=== PATIENT | female | born 1985 | race Caucasian/White ===

== ENCOUNTER → 2023-11-18 | Outpatient (CLI) | payer BC | END | disposition home or self-care (01) | LOC: LABWHC1 08:43 | PROVIDERS: ATTEND Family Medicine | DX: R53.83 Other fatigue (principal) | CPT/HCPCS: 36415; 82533 ==

== ENCOUNTER 2023-12-05 17:33 | Emergency (ER) | payer BC ==
--- NOTE | 2023-12-05 17:43 | ED ---
Weakness HPI - General Source: patient, RN notes reviewed <Samaria De La Torre - Last Filed: 12/05/23 17:42> <Cirilo Hollingsworth - Last Filed: 12/06/23 04:30> - General Stated complaint: Weakness Time Seen by Provider: 12/05/23 17:42 - History of Present Illness Initial comments: Patient is a 38-year-old female presented to ER with a chief complaint of weakness. Patient states this has been going on for the past couple months and has been getting worked up outpatient. She states for the past 24 hours her symptoms have increased. Patient has been told in the past she has severe anemia and is currently waiting infusions. She reports earlier this week she was having some chest pain. Denies any fevers, chills, cough, congestion. (Samaria De La Torre) Patient is a 38-year-old female who presents to the emergency department with what appears to be a near syncopal episode. Occurred earlier today. Has been dealing with chronic fatigue as well as suspicion for microcytic anemia. She is working on getting approval for iron infusions. Had a near syncopal episode at home earlier. [place] lightheaded. Presents for further evaluation. States she feels improved other than the fatigue. Denies any other acute complaints at this time. Originally evaluated as a quick note. I evaluated her when she was placed in a hallway bed. (Cirilo Hollingsworth) - Related Data Previous Rx's Medication Instructions Recorded Cephalexin [Keflex] 500 mg PO Q12HR 7 Days #14 cap 12/05/23 Allergies Allergy/AdvReac Type Severity Reaction Status Date / Time No Known Allergies Allergy Verified 12/05/23 17:51 Review of Systems ROS Other: All systems not noted in ROS Statement are negative. <Samaria De La Torre - Last Filed: 12/05/23 17:42> ROS Other: All systems not noted in ROS Statement are negative. <Cirilo Hollingsworth - Last Filed: 12/06/23 04:30> ROS Statement: Those systems with pertinent positive or pertinent negative responses have been documented in the HPI. Review of Systems: CONST: Denies fever EYES: Denies blurry vision ENT: Denies nasal congestion C/V: Denies Chest pain RESP: Denies shortness of breath GI: Denies abdominal pain : Denies dysuria SKIN: Denies rash. MSK: Denies joint pain. NEURO: Denies headache (Cirilo Hollingsworth) General Exam <Samaria De La Torre - Last Filed: 12/05/23 17:42> <Cirilo Hollingsworth - Last Filed: 12/06/23 04:30> - General Exam Comments Initial Comments: Visual Physical Exam Vital signs reviewed General: Well-appearing, nontoxic, no acute distress. Head: Normocephalic, atraumatic Eyes: PERRLA, EOMI ENT: Airway patent Chest: Nonlabored breathing Skin: No visual rash, normal skin tone Neuro: Alert and oriented 3 Musculoskeletal: No gross abnormalities (Samaria De La Torre) General: Appears in no acute distress. HEAD: Normal with no signs of head trauma. EYES: PERRLA, EOMI, conjunctiva normal, no discharge. ENT: Hearing grossly intact, normal oropharynx. RESPIRATORY: Clear breath sounds bilaterally. No wheezes, rales, or rhonchi. C/V: Regular rate and rhythm. S1 and S2 auscultated, no edema, peripheral pulses 2+ and intact throughout ABD: Abd is soft, nontender, nondistended EXT: Normal range of motion, no obvious deformity SKIN: No rashes or lesions observed on exposed skin. NEURO: Alert and oriented x 4.No focal sensory or strength deficits. (Cirilo Hollingsworth) Course Vital Signs 12/05/23 12/05/23 12/05/23 17:47 21:58 23:17 Temperature 98.4 F 97.8 F 97.7 F Pulse Rate 70 56 L 64 Respiratory 16 16 16 Rate Blood Pressure 135/82 121/75 106/63 O2 Sat by Pulse 98 100 100 Oximetry Medical Decision Making <Samaria De La Torre - Last Filed: 12/05/23 17:42> - Lab Data Result diagrams: 12/05/23 18:10 12/05/23 18:10 - EKG Data -: EKG Interpreted by Me <Cirilo Hollingsworth - Last Filed: 12/06/23 04:30> - Medical Decision Making I performed the quick note portion of this chart. Electronically signed by Samaria De La Torre PA-C (Samaria De La Torre) Was pt. sent in by a medical professional or institution (ALONDRA Aguayo, FULL DECATOR OPERATOR, urgent care, hospital, or [facility]...) When possible be specific @ -No Did you speak to anyone other than the patient for history (EMS, parent, family, police, friend...)? What history was obtained from this source @ -No Did you review nursing and triage notes (agree or disagree)? Why? @ -I reviewed and agree with nursing and triage notes Were old charts reviewed (outside hosp., previous admission, EMS record, old EKG, old radiological studies, urgent care reports/EKG's, [facility] records)? Report findings @ -No old charts were reviewed Differential Diagnosis (chest pain, altered mental status, abdominal pain women, abdominal pain men, vaginal bleeding, weakness, fever, dyspnea, syncope, headache, dizziness, GI bleed, back pain, seizure, CVA, palpatations, mental health, musculoskeletal)? @ -Dehydration, electrolyte abnormality, anemia, infection, cardiac etiology. This list is not all inclusive. EKG interpreted by me (3pts min.). @ -As above X-rays interpreted by me (1pt min.). @ -Chest x-ray reveals no obvious acute cardiopulmonary process. CT interpreted by me (1pt min.). @ -None done U/S interpreted by me (1pt. min.). @ -None done What testing was considered but not performed or refused? (CT, X-rays, U/S, labs)? Why? @ -None What meds were considered but not given or refused? Why? @ -None Did you discuss the management of the patient with other professionals (professionals i.e. , PA, FULL DECATOR OPERATOR, lab, RT, psych nurse, neonatal social worker, workers compensation coordinator, teacher, geographic area intelligence officer, director of casework)? Give summary @ -No Was smoking cessation discussed for >3mins.? @ -No Was critical care preformed (if so, how long)? @ -No Were there social determinants of health that impacted care today? How? (Homelessness, low income, unemployed, alcoholism, drug addiction, transportation, low edu. Level, literacy, decrease access to med. care, long term, rehab)? @ -No Was there de-escalation of care discussed even if they declined (Discuss DNR or withdrawal of care, Hospice)? DNR status @ -No What co-morbidities impacted this encounter? (DM, HTN, Smoking, COPD, CAD, Cancer, CVA, ARF, Chemo, Hep., AIDS, mental health diagnosis, sleep apnea, morbid obesity)? @ -None Was patient admitted / discharged? Hospital course, mention meds given and route, prescriptions, significant lab abnormalities, going to OR and other pertinent info. @ -Patient presents with acute on chronic fatigue as well as a near syncopal episode at home. Has been getting worked up outpatient for the fatigue and they do suspect is likely secondary to microcytic anemia. Vital signs currently within acceptable limits. I evaluated her when she was placed in a hallway bed. She is feeling improved at this time. We are awaiting urinalysis. Patient's laboratory studies are remarkable for a mild microcytic anemia with a hemoglobin of 11.6. Workup otherwise remarkable for an undetectable troponin. Urinalysis pending. Viral swabs negative. Chest x-ray unremarkable. EKG shows no signs of acute ischemia. I discussed results with patient. We will administer IV fluids and obtain a urinalysis. She was in agreement this plan.Urinalysis is borderline for acute UTI. Culture sent. I discussed results with the patient. She is feeling improved. She will be started on antibiotics, Keflex considering her symptoms. She was in agreement this plan. Strict return precautions discussed. I will provide the patient with a prescription for Keflex. I instructed the patient to follow up with their PCP in the next 1-3 days.. I explained that the patient should return to the emergency department if they experience any worsening symptoms. Strict return precautions were discussed with the patient. The patient expressed understanding of these instructions. I answered all questions that the patient had. The patient was discharged home in good condition with their prescriptions and follow up information. Undiagnosed new problem with uncertain prognosis? @ -No Drug Therapy requiring intensive monitoring for toxicity (Heparin, Nitro, Insulin, Cardizem)? @ -No Were any procedures done? @ -No Diagnosis/symptom? @ -Near syncope, UTI, fatigue Acute, or Chronic, or Acute on Chronic? @ -Acute Uncomplicated (without systemic symptoms) or Complicated (systemic symptoms)? @ -Complicated Side effects of treatment? @ -None Exacerbation, Progression, or Severe Exacerbation] @ -No Poses a threat to life or bodily function? @ -Unlikely (Cirilo Hollingsworth) - Lab Data Lab Results 12/05/23 12/05/23 12/05/23 Range/Units 18:10 18:10 18:10 WBC 7.4 (3.8-10.6) k/uL RBC 4.63 (3.80-5.40) m/uL Hgb 11.6 (11.4-16.0) gm/dL Hct 35.1 (34.0-46.0) % MCV 75.8 L (80.0-100.0) fL MCH 25.0 (25.0-35.0) pg MCHC 32.9 (31.0-37.0) g/dL RDW 15.9 H (11.5-15.5) % Plt Count 331 (150-450) k/uL MPV 6.9 Neutrophils % 66 % Lymphocytes % 24 % Monocytes % 6 % Eosinophils % 2 % Basophils % 0 % Neutrophils # 4.9 (1.3-7.7) k/uL Lymphocytes # 1.8 (1.0-4.8) k/uL Monocytes # 0.4 (0-1.0) k/uL Eosinophils # 0.1 (0-0.7) k/uL Basophils # 0.0 (0-0.2) k/uL Microcytosis Slight PT 10.2 (10.0-12.5) sec INR 0.9 (<1.2) APTT 24.9 (22.0-30.0) sec Sodium 139 (137-145) mmol/L Potassium 3.6 (3.5-5.1) mmol/L Chloride 110 H (98-107) mmol/L Carbon Dioxide 19 L (22-30) mmol/L Anion Gap 10 mmol/L BUN 12 (7-17) mg/dL Creatinine 0.67 (0.52-1.04) mg/dL Est GFR (CKD-EPI)AfAm >90 (>60 ml/min/1.73 sqM) Est GFR (CKD-EPI)NonAf >90 (>60 ml/min/1.73 sqM) Glucose 109 H (74-99) mg/dL Plasma Lactic Acid Clarence (0.7-2.0) mmol/L Calcium 9.1 (8.4-10.2) mg/dL Magnesium 1.9 (1.6-2.3) mg/dL Total Bilirubin 0.3 (0.2-1.3) mg/dL AST 25 (14-36) U/L ALT 23 (4-34) U/L Alkaline Phosphatase 101 (38-126) U/L Troponin I (0.000-0.034) ng/mL Total Protein 7.5 (6.3-8.2) g/dL Albumin 4.1 (3.5-5.0) g/dL Urine Color Urine Appearance (Clear) Urine pH (5.0-8.0) Ur Specific Justice (1.001-1.035) Urine Protein (Negative) Urine Glucose (UA) (Negative) Urine Ketones (Negative) Urine Blood (Negative) Urine Nitrite (Negative) Urine Bilirubin (Negative) Urine Urobilinogen (<2.0) mg/dL Ur Leukocyte Esterase (Negative) Urine RBC (0-5) /hpf Urine WBC (0-5) /hpf Ur Squamous Epith Cells (0-4) /hpf Urine Bacteria (None) /hpf Urine Mucus (None) /hpf Influenza Type A (PCR) (Not Detectd) Influenza Type B (PCR) (Not Detectd) RSV (PCR) (Not Detectd) SARS-CoV-2 (PCR) (Not Detectd) 12/05/23 12/05/23 12/05/23 Range/Units 18:10 18:10 18:10 WBC (3.8-10.6) k/uL RBC (3.80-5.40) m/uL Hgb (11.4-16.0) gm/dL Hct (34.0-46.0) % MCV (80.0-100.0) fL MCH (25.0-35.0) pg MCHC (31.0-37.0) g/dL RDW (11.5-15.5) % Plt Count (150-450) k/uL MPV Neutrophils % % Lymphocytes % % Monocytes % % Eosinophils % % Basophils % % Neutrophils # (1.3-7.7) k/uL Lymphocytes # (1.0-4.8) k/uL Monocytes # (0-1.0) k/uL Eosinophils # (0-0.7) k/uL Basophils # (0-0.2) k/uL Microcytosis PT (10.0-12.5) sec INR (<1.2) APTT (22.0-30.0) sec Sodium (137-145) mmol/L Potassium (3.5-5.1) mmol/L Chloride (98-107) mmol/L Carbon Dioxide (22-30) mmol/L Anion Gap mmol/L BUN (7-17) mg/dL Creatinine (0.52-1.04) mg/dL Est GFR (CKD-EPI)AfAm (>60 ml/min/1.73 sqM) Est GFR (CKD-EPI)NonAf (>60 ml/min/1.73 sqM) Glucose (74-99) mg/dL Plasma Lactic Acid Clarence 1.5 (0.7-2.0) mmol/L Calcium (8.4-10.2) mg/dL Magnesium (1.6-2.3) mg/dL Total Bilirubin (0.2-1.3) mg/dL AST (14-36) U/L ALT (4-34) U/L Alkaline Phosphatase (38-126) U/L Troponin I <0.012 (0.000-0.034) ng/mL Total Protein (6.3-8.2) g/dL Albumin (3.5-5.0) g/dL Urine Color Urine Appearance (Clear) Urine pH (5.0-8.0) Ur Specific Justice (1.001-1.035) Urine Protein (Negative) Urine Glucose (UA) (Negative) Urine Ketones (Negative) Urine Blood (Negative) Urine Nitrite (Negative) Urine Bilirubin (Negative) Urine Urobilinogen (<2.0) mg/dL Ur Leukocyte Esterase (Negative) Urine RBC (0-5) /hpf Urine WBC (0-5) /hpf Ur Squamous Epith Cells (0-4) /hpf Urine Bacteria (None) /hpf Urine Mucus (None) /hpf Influenza Type A (PCR) Not Detected (Not Detectd) Influenza Type B (PCR) Not Detected (Not Detectd) RSV (PCR) Not Detected (Not Detectd) SARS-CoV-2 (PCR) Not Detected (Not Detectd) 12/05/23 Range/Units 22:23 WBC (3.8-10.6) k/uL RBC (3.80-5.40) m/uL Hgb (11.4-16.0) gm/dL Hct (34.0-46.0) % MCV (80.0-100.0) fL MCH (25.0-35.0) pg MCHC (31.0-37.0) g/dL RDW (11.5-15.5) % Plt Count (150-450) k/uL MPV Neutrophils % % Lymphocytes % % Monocytes % % Eosinophils % % Basophils % % Neutrophils # (1.3-7.7) k/uL Lymphocytes # (1.0-4.8) k/uL Monocytes # (0-1.0) k/uL Eosinophils # (0-0.7) k/uL Basophils # (0-0.2) k/uL Microcytosis PT (10.0-12.5) sec INR (<1.2) APTT (22.0-30.0) sec Sodium (137-145) mmol/L Potassium (3.5-5.1) mmol/L Chloride (98-107) mmol/L Carbon Dioxide (22-30) mmol/L Anion Gap mmol/L BUN (7-17) mg/dL Creatinine (0.52-1.04) mg/dL Est GFR (CKD-EPI)AfAm (>60 ml/min/1.73 sqM) Est GFR (CKD-EPI)NonAf (>60 ml/min/1.73 sqM) Glucose (74-99) mg/dL Plasma Lactic Acid Clarence (0.7-2.0) mmol/L Calcium (8.4-10.2) mg/dL Magnesium (1.6-2.3) mg/dL Total Bilirubin (0.2-1.3) mg/dL AST (14-36) U/L ALT (4-34) U/L Alkaline Phosphatase (38-126) U/L Troponin I (0.000-0.034) ng/mL Total Protein (6.3-8.2) g/dL Albumin (3.5-5.0) g/dL Urine Color Colorless Urine Appearance Cloudy H (Clear) Urine pH 6.0 (5.0-8.0) Ur Specific Justice 1.015 (1.001-1.035) Urine Protein Negative (Negative) Urine Glucose (UA) Negative (Negative) Urine Ketones Negative (Negative) Urine Blood Negative (Negative) Urine Nitrite Negative (Negative) Urine Bilirubin Negative (Negative) Urine Urobilinogen <2.0 (<2.0) mg/dL Ur Leukocyte Esterase Large H (Negative) Urine RBC 6 H (0-5) /hpf Urine WBC 28 H (0-5) /hpf Ur Squamous Epith Cells 6 H (0-4) /hpf Urine Bacteria Rare H (None) /hpf Urine Mucus Rare H (None) /hpf Influenza Type A (PCR) (Not Detectd) Influenza Type B (PCR) (Not Detectd) RSV (PCR) (Not Detectd) SARS-CoV-2 (PCR) (Not Detectd) - EKG Data EKG Comments: 12-lead Electrocardiogram Interpretation Note EKG was reviewed and interpreted by myself. 12-lead ECG performed at 1758 is interpreted by me as revealing normal sinus rhythm at a rate of 63 beats per mi nute. Dickinson is normal. LA interval is 156 ms, QRS duration is 98 ms, QTc is 392 ms.. There were no ST or T wave abnormalities to suggest myocardial ischemia or injury. R wave progression across the precordium was satisfactory. By my interpretation this EKG is non-diagnostic for acute ischemia. (Cirilo Hollingsworth) Disposition <Samaria De La Torre - Last Filed: 12/05/23 17:42> Is patient prescribed a controlled substance at d/c from ED?: No Time of Disposition: 23:20 <Cirilo Hollingsworth - Last Filed: 12/06/23 04:30> Clinical Impression: UTI (urinary tract infection), Fatigue, Near syncope Disposition: ADMITTED IP TO THIS HOSP Instructions (If sedation given, give patient instructions): Urinary Tract Infection in Women (ED), Near Syncope (ED) Prescriptions: Cephalexin [Keflex] 500 mg PO Q12HR 7 Days #14 cap Referrals: None,Stated [Primary Care Provider] - 1-2 days
[2023-12-05 18:16] VITALS: RESP 16
[2023-12-05 18:26] LABS: Basophils % (A) 0 %; Eosinophils # (A) 0.1 k/uL (0-0.7); Eosinophils % (A) 2 %; HCT 35.1 % (34.0-46.0); HGB 11.6 gm/dL (11.4-16.0); Lymphocytes # (A) 1.8 k/uL (1.0-4.8); Lymphocytes % (A) 24 %; MCHC 32.9 g/dL (31.0-37.0); MCV 75.8 fL (80.0-100.0); Mean Platelet Volume 6.9; Microcytosis Slight; Monocytes # (A) 0.4 k/uL (0-1.0); Monocytes % (A) 6 %; Neutrophils # (A) 4.9 k/uL (1.3-7.7); Neutrophils % (A) 66 %; Platelet Count 331 k/uL (150-450); RBC 4.63 m/uL (3.80-5.40); RDW 15.9 % (11.5-15.5); WBC 7.4 k/uL (3.8-10.6)
[2023-12-05 18:35] LABS: INR 0.9 (<1.2); Partial Thromboplastin Time 24.9 sec (22.0-30.0); Prothrombin Time 10.2 sec (10.0-12.5)
[2023-12-05 18:41] LABS: ALT 23 U/L (4-34); AST 25 U/L (14-36); African American GFR (CKD) >90 (>60 ml/min/1.73 sqM); Albumin 4.1 g/dL (3.5-5.0); Alkaline Phosphatase 101 U/L (38-126); Anion Gap 10 mmol/L; Blood Urea Nitrogen 12 mg/dL (7-17); Calcium 9.1 mg/dL (8.4-10.2); Carbon Dioxide 19 mmol/L (22-30); Chloride 110 mmol/L (98-107); Glucose 109 mg/dL (74-99); Magnesium 1.9 mg/dL (1.6-2.3); Non-African American GFR(CKD) >90 (>60 ml/min/1.73 sqM); Potassium 3.6 mmol/L (3.5-5.1); Sodium 139 mmol/L (137-145); Total Bilirubin 0.3 mg/dL (0.2-1.3); Total Protein 7.5 g/dL (6.3-8.2)
--- NOTE | 2023-12-05 19:23 | XR ---
EXAMINATION TYPE: XR chest 2V DATE OF EXAM: 12/05/2023 6:49 PM CLINICAL INDICATION:Female, 38 years old with history of Weakness; [facility] COMPARISON: None TECHNIQUE: XR chest 2V Frontal and lateral views of the chest. FINDINGS: Lungs/Pleura: There is flattening of the diaphragm with increased lucency of the lungs. No evidence o f pneumothorax, pleural effusion or focal consolidation. Pulmonary vascularity: Unremarkable. Heart/mediastinum: Cardiomediastinal silhouette is unremarkable. Musculoskeletal: No acute osseous pathology. Other findings: None IMPRESSION: 1. No acute cardiopulmonary disease process. 2. COPD changes.
[2023-12-05 22:42] LABS: Appearance,Urine Cloudy (Clear); Bacteria,Urine Rare /hpf; Bilirubin,Urine Negative (Negative); Blood,Urine Negative (Negative); Color,Urine Colorless; Glucose,Urine (UA) Negative (Negative); Ketones,Urine Negative (Negative); Leukocyte Esterase,Urine Large (Negative); Mucus,Urine Rare /hpf; Nitrite,Urine Negative (Negative); Protein,Urine Negative (Negative); RBC,Urine 6 /hpf (0-5); Specific Gravity,Urine 1.015 (1.001-1.035); Squamous Epithelial Cell,Urine 6 /hpf (0-4); Urobilinogen,Urine <2.0 mg/dL (<2.0); WBC,Urine 28 /hpf (0-5)
[2023-12-05 23:26] VITALS: BP 106/63; PULSE 64; TEMP 97.7
[2023-12-05] MEDS: CEPHALEXIN 500 MG CAP PO STA (23:28)
== END 2023-12-05 23:31 | disposition other institution (70) ==
LOC: EC 17:33
DX: N39.0 Urinary tract infection, site not specified (principal); R53.83 Other fatigue; R55 Syncope and collapse; Z20.822 Contact with and (suspected) exposure to COVID-19
CPT/HCPCS: 36415; 71046; 80053; 81001; 83605; 83735; 84484; 85025; 85610; 85730; 87086; 87636; 93005; 99285

== ENCOUNTER 2023-12-15 06:04 | Inpatient (IN) | payer BC ==
[2023-12-15 06:11] LABS: Glucose,Whole Blood 136 mg/dL (70-110)
--- NOTE | 2023-12-15 06:12 | ED ---
General Adult HPI - General Source: patient, EMS, RN notes reviewed, old records reviewed Mode of arrival: EMS Limitations: no limitations <Chuck Lawler - Last Filed: 12/15/23 06:39> <Cirilo Hollingsworth - Last Filed: 12/15/23 15:20> - General Chief complaint: Abdominal Pain Stated complaint: ABD pain Time Seen by Provider: 12/15/23 06:07 - History of Present Illness Initial comments: 38-year-old female presenting with severe abdominal pain. Patient symptoms began abruptly just prior to arrival. She reports mid abdominal pain and pain in the center of her back. Patient is in moderate to severe distress secondary to pain. She states she had 2 normal bowel movements yesterday. She 100% denies current . She denies any preceding symptoms states the pain woke her from sleep. No hematuria, no dysuria. No history of renal colic or kidney stones. (Chuck Lawler) - Related Data Home Medications Medication Instructions Recorded Confirmed Ascorbic Acid [Vitamin C chew] 1,000 mg PO DAILY 12/15/23 12/15/23 Ferrous Sulfate [Feosol] 325 mg PO DAILY 12/15/23 12/15/23 Nitrofurantoin Monohyd/M-Cryst 100 mg PO Q12HR 12/15/23 12/15/23 [Macrobid] Vitamin B-12(Unknown Dose) 1 tab PO DAILY 12/15/23 12/15/23 Allergies Allergy/AdvReac Type Severity Reaction Status Date / Time No Known Allergies Allergy Verified 12/15/23 09:57 Review of Systems ROS Other: All systems not noted in ROS Statement are negative. <Chuck Lawler - Last Filed: 12/15/23 06:39> ROS Other: All systems not noted in ROS Statement are negative. <Cirilo Hollingsworth - Last Filed: 12/15/23 15:20> ROS Statement: Those systems with pertinent positive or pertinent negative responses have been documented in the HPI. Past Medical History Additional Past Medical History / Comment(s): anmeia, endometriosis Past Surgical History: Section Additional Past Surgical History / Comment(s): exploratory lap Past Psychological History: No Psychological Hx Reported Smoking Status: Never smoker Past Alcohol Use History: None Reported Past Drug Use History: None Reported <Chuck Lawler - Last Filed: 12/15/23 06:39> General Exam General appearance: alert, in distress Head exam: Present: atraumatic, normocephalic Eye exam: Present: normal appearance, PERRL Neck exam: Present: normal inspection. Absent: tenderness, meningismus Respiratory exam: Present: normal lung sounds bilaterally. Absent: respiratory distress, wheezes Cardiovascular Exam: Present: normal rhythm, tachycardia GI/Abdominal exam: Present: tenderness, guarding. Absent: distended Extremities exam: Present: normal inspection, normal capillary refill Neurological exam: Present: alert, oriented X3, CN II-XII intact. Absent: motor sensory deficit Psychiatric exam: Present: anxious Skin exam: Present: warm, dry <Chuck Lawler - Last Filed: 12/15/23 06:39> Course <Chuck Lawler - Last Filed: 12/15/23 06:39> Vital Signs 12/15/23 12/15/23 12/15/23 06:05 06:27 07:28 Temperature 98.0 F Pulse Rate 128 H 84 62 Respiratory 24 22 16 Rate Blood Pressure 125/84 125/74 121/62 O2 Sat by Pulse 100 100 100 Oximetry 12/15/23 12/15/23 09:09 12:16 Temperature Pulse Rate 52 L 80 Respiratory 16 16 Rate Blood Pressure 115/66 117/66 O2 Sat by Pulse 98 99 Oximetry - Reevaluation(s) Reevaluation #1: 12/15/23 0700 Patient care signed out at shift change to Dr. Hollingsworth (Chuck Lawler) Medical Decision Making - Lab Data Result diagrams: 12/15/23 06:11 <Chuck Lawler - Last Filed: 12/15/23 06:39> - Lab Data Result diagrams: 12/15/23 06:11 12/15/23 06:11 <Cirilo Hollingsworth - Last Filed: 12/15/23 15:20> - Medical Decision Making Was pt. sent in by a medical professional or institution (, PA, SIGN PAINTER HELPER, urgent care, hospital, or skilled nursing...) When possible be specific @ -No Did you speak to anyone other than the patient for history (EMS, parent, family, police, friend...)? What history was obtained from this source @ -Paramedics Did you review nursing and triage notes (agree or disagree)? Why? @ -I reviewed and agree with nursing and triage notes Were old charts reviewed (outside hosp., previous admission, EMS record, old EKG, old radiological studies, urgent care reports/EKG's, skilled nursing records)? Report findings @ -No old charts were reviewed Differential Diagnosis (chest pain, altered mental status, abdominal pain women, abdominal pain men, vaginal bleeding, weakness, fever, dyspnea, syncope, headache, dizziness, GI bleed, back pain, seizure, CVA, palpatations, mental health, musculoskeletal)? @ -Differential Abdominal Pain Women: Appendicitis, Cholecystitis, diverticulosis, ischemic bowel, pancreatitis, hepatitis, UTI, gastroenteritis, AAA, incarcerated hernia, bowel obstruction, constipation, inflammatory bowel, hepatitis, peptic ulcer disease, splenic infa rction, perforated viscus, vulvitis, ovarian torsion, PID, kidney stone, placenta abruption, this is not meant to be an all-inclusive list EKG interpreted by me (3pts min.). @ -EKG sinus tachycardia rate of 103, RI interval 144, QRS duration 110, QTc [address] segment elevation. X-rays interpreted by me (1pt min.). @ -None done CT interpreted by me (1pt min.). @ -CT abdomen pelvis ordered, results pending U/S interpreted by me (1pt. min.). @ -None done What testing was considered but not performed or refused? (CT, X-rays, U/S, labs)? Why? @ -None What meds were considered but not given or refused? Why? @ -None Did you discuss the management of the patient with other professionals (pro fessionals i.e. , PA, SIGN PAINTER HELPER, lab, RT, psych nurse, medical social worker, plant inspector, teacher, senior grants officer, case therapist)? Give summary @ -No Was smoking cessation discussed for >3mins.? @ -No Was critical care preformed (if so, how long)? @ -No Were there social determinants of health that impacted care today? How? (Homelessness, low income, unemployed, alcoholism, drug addiction, transportation, low edu. Level, literacy, decrease access to med. care, [place] [facility], rehab)? @ -No Was there de-escalation of care discussed even if they declined (Discuss DNR or withdrawal of care, Hospice)? DNR status @ -No What co-morbidities impacted this encounter? (DM, HTN, Smoking, COPD, CAD, Cancer, CVA, ARF, Chemo, Hep., AIDS, mental health diagnosis, sleep apnea, morbid obesity)? @Anemia Was patient admitted / discharged? Hospital course, mention meds given and route, prescriptions, significant lab abnormalities, going to OR and other pertinent info. @ -Patient care signed out to Dr. Hollinsgworth at shift change awaiting laboratory testing, CT imaging, reevaluation. (Chuck Lawler) Patient signed out to me pending results of abdominal workup. Presented with intractable abdominal pain. Also had urinary retention, and Kerr catheter placed by the prior physician. Approximately 400 cc of urine came out at that time. Has remote history of urinary retention. Patient pending results of workup. Received multiple doses of analgesia medications so far as well as IV fluids. Patient's labs are remarkable for a lactic acidosis of 5.1 of unknown etiology. Potassium is also decreased to 3.0 was replenished. Troponin undetectable. EKG already interpreted by prior physician was unremarkable. Interpreted by me, CT abdomen pelvis revealed some urinary retention, which was before the Kerr catheter was placed as well as findings consistent with ruptured follicle or cyst of the right ovary. Ultrasound of the pelvis revealed no obvious acute process. It does redemonstrate the cyst of the right ovary. On reevaluation, patient's pain is improved. Kerr catheter functioning appropriately. Due to the elevated lactic acid as well as intractable abdominal pain and concern for urinary retention she will be admitted to the hospital. Patient was in agreement this plan. I spoke with [facility], Dr. Middleton who accepted the admission. I believe the lactic acidosis is likely secondary to possible dehydration related to the urinary retention. I do not have suspicion for infectious etiology at this time. We will continue to monitor. Diagnosis/symptom? @ -Abdominal pain of unknown etiology, ruptured ovarian cyst, lactic acidosis, urinary retention, hypokalemia Acute, or Chronic, or Acute on Chronic? @ -Acute Uncomplicated (without systemic symptoms) or Complicated (systemic symptoms)? @ -Complicated Side effects of treatment? @ -None Exacerbation, Progression, or Severe Exacerbation] @ -No Poses a threat to life or bodily function? @ -Potentially, yes (Cirilo Hollingsworth) - Lab Data Lab Results 12/15/23 12/15/23 12/15/23 Range/Units 06:09 06:11 06:11 WBC 9.4 (3.8-10.6) k/uL RBC 4.90 (3.80-5.40) m/uL Hgb 12.4 (11.4-16.0) gm/dL Hct 36.9 (34.0-46.0) % MCV 75.3 L (80.0-100.0) fL MCH 25.3 (25.0-35.0) pg MCHC 33.6 (31.0-37.0) g/dL RDW 16.3 H (11.5-15.5) % Plt Count 368 (150-450) k/uL MPV 7.1 Neutrophils % 67 % Lymphocytes % 23 % Monocytes % 6 % Eosinophils % 1 % Basophils % 1 % Neutrophils # 6.3 (1.3-7.7) k/uL Lymphocytes # 2.1 (1.0-4.8) k/uL Monocytes # 0.6 (0-1.0) k/uL Eosinophils # 0.1 (0-0.7) k/uL Basophils # 0.1 (0-0.2) k/uL Anisocytosis Slight Microcytosis Slight APTT 23.0 (22.0-30.0) sec Sodium (137-145) mmol/L Potassium (3.5-5.1) mmol/L Chloride (98-107) mmol/L Carbon Dioxide (22-30) mmol/L Anion Gap mmol/L BUN (7-17) mg/dL Creatinine (0.52-1.04) mg/dL Est GFR (CKD-EPI)AfAm (>60 ml/min/1.73 sqM) Est GFR (CKD-EPI)NonAf (>60 ml/min/1.73 sqM) Glucose (74-99) mg/dL POC Glucose (mg/dL) 136 H (70-110) mg/dL POC Glu Clam Grower ID Erendira Wiggins Lactic Ac Sepsis Rflx Plasma Lactic Acid Clarence (0.7-2.0) mmol/L Calcium (8.4-10.2) mg/dL Total Bilirubin (0.2-1.3) mg/dL AST (14-36) U/L ALT (4-34) U/L Alkaline Phosphatase (38-126) U/L Troponin I (0.000-0.034) ng/mL Total Protein (6.3-8.2) g/dL Albumin (3.5-5.0) g/dL Amylase (30-110) U/L Lipase (23-300) U/L Urine Color Urine Appearance (Clear) Urine pH (5.0-8.0) Ur Specific [place] (1.001-1.035) Urine Protein (Negative) Urine Glucose (UA) (Negative) Urine Ketones (Negative) Urine Blood (Negative) Urine Nitrite (Negative) Urine Bilirubin (Negative) Urine Urobilinogen (<2.0) mg/dL Ur Leukocyte Esterase (Negative) Urine HCG, Qual (Not Detectd) 12/15/23 12/15/23 12/15/23 Range/Units 06:11 06:11 06:11 WBC (3.8-10.6) k/uL RBC (3.80-5.40) m/uL Hgb (11.4-16.0) gm/dL Hct (34.0-46.0) % MCV (80.0-100.0) fL MCH (25.0-35.0) pg MCHC (31.0-37.0) g/dL RDW (11.5-15.5) % Plt Count (150-450) k/uL MPV Neutrophils % % Lymphocytes % % Monocytes % % Eosinophils % % Basophils % % Neutrophils # (1.3-7.7) k/uL Lymphocytes # (1.0-4.8) k/uL Monocytes # (0-1.0) k/uL Eosinophils # (0-0.7) k/uL Basophils # (0-0.2) k/uL Anisocytosis Microcytosis APTT (22.0-30.0) sec Sodium 139 (137-145) mmol/L Potassium 3.0 L (3.5-5.1) mmol/L Chloride 111 H (98-107) mmol/L Carbon Dioxide 13 L (22-30) mmol/L Anion Gap 15 mmol/L BUN 12 (7-17) mg/dL Creatinine 0.73 (0.52-1.04) mg/dL Est GFR (CKD-EPI)AfAm >90 (>60 ml/min/1.73 sqM) Est GFR (CKD-EPI)NonAf >90 (>60 ml/min/1.73 sqM) Glucose 131 H (74-99) mg/dL POC Glucose (mg/dL) (70-110) mg/dL POC Glu Clam Grower ID Lactic Ac Sepsis Rflx Plasma Lactic Acid Clarence 5.1 H* (0.7-2.0) mmol/L Calcium 10.3 H (8.4-10.2) mg/dL Total Bilirubin 0.5 (0.2-1.3) mg/dL AST 28 (14-36) U/L ALT 25 (4-34) U/L Alkaline Phosphatase 105 (38-126) U/L Troponin I <0.012 (0.000-0.034) ng/mL Total Protein 7.8 (6.3-8.2) g/dL Albumin 4.4 (3.5-5.0) g/dL Amylase 74 (30-110) U/L Lipase 106 (23-300) U/L Urine Color Urine Appearance (Clear) Urine pH (5.0-8.0) Ur Specific [place] (1.001-1.035) Urine Protein (Negative) Urine Glucose (UA) (Negative) Urine Ketones (Negative) Urine Blood (Negative) Urine Nitrite (Negative) Urine Bilirubin (Negative) Urine Urobilinogen (<2.0) mg/dL Ur Leukocyte Esterase (Negative) Urine HCG, Qual (Not Detectd) 12/15/23 12/15/23 12/15/23 Range/Units 07:16 07:19 07:19 WBC (3.8-10.6) k/uL RBC (3.80-5.40) m/uL Hgb (11.4-16.0) gm/dL Hct (34.0-46.0) % MCV (80.0-100.0) fL MCH (25.0-35.0) pg MCHC (31.0-37.0) g/dL RDW (11.5-15.5) % Plt Count (150-450) k/uL MPV Neutrophils % % Lymphocytes % % Monocytes % % Eosinophils % % Basophils % % Neutrophils # (1.3-7.7) k/uL Lymphocytes # (1.0-4.8) k/uL Monocytes # (0-1.0) k/uL Eosinophils # (0-0.7) k/uL Basophils # (0-0.2) k/uL Anisocytosis Microcytosis APTT (22.0-30.0) sec Sodium (137-145) mmol/L Potassium (3.5-5.1) mmol/L Chloride (98-107) mmol/L Carbon Dioxide (22-30) mmol/L Anion Gap mmol/L BUN (7-17) mg/dL Creatinine (0.52-1.04) mg/dL Est GFR (CKD-EPI)AfAm (>60 ml/min/1.73 sqM) Est GFR (CKD-EPI)NonAf (>60 ml/min/1.73 sqM) Glucose (74-99) mg/dL POC Glucose (mg/dL) (70-110) mg/dL POC Glu Clam Grower ID Lactic Ac Sepsis Rflx Y Plasma Lactic Acid Clarence (0.7-2.0) mmol/L Calcium (8.4-10.2) mg/dL Total Bilirubin (0.2-1.3) mg/dL AST (14-36) U/L ALT (4-34) U/L Alkaline Phosphatase (38-126) U/L Troponin I (0.000-0.034) ng/mL Total Protein (6.3-8.2) g/dL Albumin (3.5-5.0) g/dL Amylase (30-110) U/L Lipase (23-300) U/L Urine Color Colorless Urine Appearance Clear (Clear) Urine pH 7.0 (5.0-8.0) Ur Specific [place] 1.009 (1.001-1.035) Urine Protein Negative (Negative) Urine Glucose (UA) Negative (Negative) Urine Ketones Negative (Negative) Urine Blood Negative (Negative) Urine Nitrite Negative (Negative) Urine Bilirubin Negative (Negative) Urine Urobilinogen <2.0 (<2.0) mg/dL Ur Leukocyte Esterase Negative (Negative) Urine HCG, Qual Not Detected (Not Detectd) Disposition <Chuck Lawler - Last Filed: 12/15/23 06:39> Time of Disposition: 09:21 <Cirilo Hollingsworth - Last Filed: 12/15/23 15:20> Clinical Impression: Abdominal pain, Urinary retention, Lactic acidosis, Hypokalemia, Ruptured ovarian cyst Disposition: ADMITTED IP TO THIS HOSP Condition: Stable
[2023-12-15] MEDS: SODIUM CHLORIDE 0.9% 1,000 ML IV STA ×2 (06:14→08:24)
[2023-12-15] MEDS: HYDROmorphone 1 MG/ML 1 ML SYRINGE IVP STA (06:15)
[2023-12-15 06:21] LABS: Anisocytosis Slight; Basophils # (A) 0.1 k/uL (0-0.2); Basophils % (A) 1 %; Eosinophils # (A) 0.1 k/uL (0-0.7); Eosinophils % (A) 1 %; HCT 36.9 % (34.0-46.0); HGB 12.4 gm/dL (11.4-16.0); Lymphocytes # (A) 2.1 k/uL (1.0-4.8); Lymphocytes % (A) 23 %; MCH 25.3 pg (25.0-35.0); MCHC 33.6 g/dL (31.0-37.0); MCV 75.3 fL (80.0-100.0); Mean Platelet Volume 7.1; Microcytosis Slight; Monocytes # (A) 0.6 k/uL (0-1.0); Monocytes % (A) 6 %; Neutrophils # (A) 6.3 k/uL (1.3-7.7); Neutrophils % (A) 67 %; Platelet Count 368 k/uL (150-450); RDW 16.3 % (11.5-15.5); WBC 9.4 k/uL (3.8-10.6)
[2023-12-15] MEDS: HYDROmorphone 0.5 MG/0.5 ML SYRINGE IVP STA ×2 (06:29→07:26)
[2023-12-15 06:45] LABS: ALT 25 U/L (4-34); AST 28 U/L (14-36); African American GFR (CKD) >90 (>60 ml/min/1.73 sqM); Albumin 4.4 g/dL (3.5-5.0); Alkaline Phosphatase 105 U/L (38-126); Amylase 74 U/L (30-110); Anion Gap 15 mmol/L; Blood Urea Nitrogen 12 mg/dL (7-17); Calcium 10.3 mg/dL (8.4-10.2); Carbon Dioxide 13 mmol/L (22-30); Chloride 111 mmol/L (98-107); Glucose 131 mg/dL (74-99); Lipase 106 U/L (23-300); Non-African American GFR(CKD) >90 (>60 ml/min/1.73 sqM); Sodium 139 mmol/L (137-145); Total Bilirubin 0.5 mg/dL (0.2-1.3); Total Protein 7.8 g/dL (6.3-8.2)
[2023-12-15 07:46] LABS: Appearance,Urine Clear (Clear); Bilirubin,Urine Negative (Negative); Blood,Urine Negative (Negative); Color,Urine Colorless; Glucose,Urine (UA) Negative (Negative); Ketones,Urine Negative (Negative); Leukocyte Esterase,Urine Negative (Negative); Nitrite,Urine Negative (Negative); Protein,Urine Negative (Negative); Specific Gravity,Urine 1.009 (1.001-1.035); Urobilinogen,Urine <2.0 mg/dL (<2.0)
--- NOTE | 2023-12-15 07:51 | CT ---
EXAMINATION TYPE: CT abdomen pelvis w con DATE OF EXAM: 12/15/2023 COMPARISON: NONE HISTORY: 38-year-old female sudden onset Severe abdominal pain TECHNIQUE: Contiguous axial scanning of the abdomen and pelvis following administration of 100 ml Iso elisha 300 IV contrast. Delayed images through the kidneys and coronal/sagittal reconstructions perform ed. CT DLP: 900.1 mGycm Automated exposure control for dose reduction was used. FINDINGS: LUNG BASES: No significant abnormality is appreciated. LIVER/GB: No significant abnormality is appreciated. PANCREAS: No significant abnormality is seen. SPLEEN: No significant abnormality is seen. ADRENALS: No significant abnormality is seen. KIDNEYS: No significant abnormality is seen. BOWEL: No significant abnormality is seen. No dilated small bowel. Plai-xn-kolxtmwy stool. Normal ap pendix. No pericolonic inflammatory change. LYMPH NODES: No suspicious greater than 1 cm lymph node is identified. OTHER: No significant abnormality is identified. PELVIS: Bladder urine distended. Uterus is retroverted. Prominent hypodense areas in the region of th e cervix measuring up to 1.7 cm, suspected cervical nabothian cysts. The ovaries are visualized. Ther e is a peripherally enhancing 2.3 cm crenulated cyst of the right ovary with mild pelvic free fluid. No pelvic lymphadenopathy. BONES: No significant abnormality is identified. IMPRESSION: 1. A 2.3 CM PERIPHERALLY ENHANCING CYST OF THE RIGHT OVARY AND MILD PELVIC FREE FLUID. CORRELATE FOR A RECENTLY RUPTURED FOLLICLE OR FUNCTIONAL CYST. 2. Prominent hypodense areas within the cervix measuring up to 1.7 cm, suspect cervical nabothian cys ts. Consider ultrasound follow-up to confirm. Uterus retroverted.
--- NOTE | 2023-12-15 08:50 | US ---
EXAMINATION TYPE: US pelvic complete DATE OF EXAM: 12/15/2023 COMPARISON: NONE CLINICAL INDICATION: Female, 38 years old with history of severe pelvic pain; pelvic pain at c-sectio n scar, feel like burning, patient has lacey in place because she could not void, , h/o endometri osis, 2 c-sections TECHNIQUE: TA. Transabdominal sonographic images of the pelvis were acquired. Transvaginal sonogra phic was offered but refused by patient Date of LMP: last month EXAM MEASUREMENTS: Uterus: 7.6 x 3.6 x 2.9 cm Endometrial Stripe: 0.4 cm Right Ovary: 3.4 x 2.7 x 2.3 cm Left Ovary: not seen Patient had CT today 1. Uterus: Retroverted limited views appear wnl, nabothian cysts seen on CT seen by US today 2. Endometrium: wnl, fluid seen in the lower uterine segment as seen on CT. 3. Right Ovary: involuting cyst = 2.0 x 1.5 x 1.0cm, correlates with CT findings 4. Left Ovary: not seen due to overlying bowel gas, normal on CT Spectral, color and waveform doppler imaging shows good arterial and venous flow within the right o vary; there is no evidence for right ovarian torsion. 5. Bilateral Adnexa: wnl 6. Posterior cul-de-sac: wnl IMPRESSION: 1. No evidence of acute process. Serial spectral venous flow within the right ovary. 2. Lacey catheter in place with urine in the bladder.
[2023-12-15] MEDS ORDERED: NALOXONE 0.4 MG/ML 1 ML VIAL IV PRN (09:30)
[2023-12-15] MEDS: POTASSIUM CHLORIDE ER 20 MEQ TAB.ER PO STA (09:50)
[2023-12-15] MEDS: SODIUM CHLORIDE 0.9% 1,000 ML IV SCH (09:51)
[2023-12-15] MEDS: HYDROmorphone 0.5 MG/0.5 ML SYRINGE IVP PRN (10:18)
--- NOTE | 2023-12-15 11:17 | P.HPIM ---
History of Present Illness H&P Date: 12/15/23 History of Presenting Illness: Patient is a very pleasant 38-year-old female with a past medical history of iron deficiency anemia and endometriosis. She presented to the hospital with a chief complaint of intractable abdominal pain. Patient reports severe suprapubic pain to midsternal pubic region and lower left suprapubic region radiating into her back awakening her from sleep this morning. She reports associated nausea and urinary retention, but denies any associated fevers, chills, diaphoresis, vomiting, hematuria, urinary frequency, urinary urgency, dysuria, hematuria, vaginal discharge, abnormal vaginal bleeding, or possibility of . She underwent full evaluation in the emergency department. Upon arrival vital signs as follows, vital signs as follows. Blood pressure 125/84, heart rate 128, respiratory rate 24, temp 98.0 F, and SpO2 of 100% on room air. EKG completed showing sinus bradycardia, will be permanent with ST depression in leads II, 3, aVF. CT abdomen and pelvis completed showing a 2.3 cm peripherally enhancing structure in the right ovary and mild pelvic free fluid with prominent hypodense areas within the cervix measuring up to 1.7 cm suspect cervical nabothian cysts. Kerr catheter placed for urine retention in the emergency department. Urinalysis completed negative for blood or infection. Urine hCG negative for . Pelvic ultrasound completed negative for acute process revealing no evidence of acute process showing no evidence for right ovarian torsion, left ovary was not seen on ultrasound secondary to ove rlying bowel gas but with reported normal on pelvic CT. Labs completed and reviewed. CBC showing no significant abnormalities. BMP revealed hypokalemia with potassium of 3.0 and high anion gap metabolic acidosis with chloride of 111, bicarb 13, and anion gap of 15. Blood glucose 136. Initial lactic acid 5.1. Calcium 10.3. Liver profile unremarkable. Lipase 106. Troponin negative at less than 0.012. Potassium was replaced and patient given 2 L bolus of 0.9% normal saline followed by maintenance infusion at 75 cc/h. Patient admitted under our services for lactic acidosis of unclear etiology with consultation to gynecology for evaluation and cardiology for EKG changes. Review of systems: Pertinent positives and negatives as discussed in HPI, a complete review of systems was performed and all other systems are negative. Physical exam: Vital signs reviewed and stable. General: Nontoxic, no distress and appears stated age. Derm: Skin warm and dry, normal coloration for ethnicity. Head: Atraumatic, normocephalic and symmetric. Eyes: EOMs intact, no lid lag, and anicteric sclera Mouth: no lip lesions, mucus membranes moist Cardiovascular: regular rate and rhythm with normal S1S2, no murmur, positive posterior tibial pulses bilaterally, and cap refill < 2 seconds. Lungs: Respirations even, regular, and unlabored on room air. Lungs CTA bilaterally, no rhonchi, no rales, no wheezing, and no accessory muscle usage. Abdominal: soft, tenderness reported to suprapubic region and left lower pubic region upon examination. Ext: ROM intact. No gross muscle atrophy, no edema, no contractures Neuro: Speech clear, face symmetrical and CN II-XII grossly intact with no noted focal neuro deficits Psych: Alert and oriented to person, place, time, and situation. Appropriate and pleasant affect. Assessment and Plan of Care: Lactic acidosis, unclear etiology High anion gap metabolic acidosis Intractable abdominal pain, believed to be caused by ovarian cyst Urinary retention, likely secondary to acute abdominal pain believed to be resulting from ovarian cyst -Kerr catheter was placed in the emergency department, will remove patient on voiding trial while monitoring closely for postvoid residuals. -Patient received aggressive IV fluid hydration with 2 L IV bolus of 0.9% normal saline followed by maintenance infusion. Repeat lactate 1.1. -Will repeat BMP later this afternoon to monitor for resolution of hypokalemia and high anion gap metabolic acidosis. -Urinalysis negative for blood, ketones, protein, or infection. -Urine hCG negative for . -Symptomatic care and pain management. -RECORDS CLERK consulted for intractable pain believed to be secondary to ovarian cyst and evaluation of hypodense areas within the cervix. EKG changes History of recent syncopal episode 1 week ago, currently free from cardiac complaints -Cardiology consulted, appreciate recommendations -Telemetry monitoring -Troponin was negative at less than 0.012 upon admission and patient currently free from cardiac complaints Hypercalcemia -Continue with gentle IV fluid hydration, monitor for resolution. Iron deficiency anemia -Hemoglobin stable at 12.4. Continue ferrous sulfate 325 mg daily. Data and imaging reviewed: As stated above in HPI CODE STATUS: Full code DVT prophylaxis: Heparin Anticipated discharge date: Clinical course to determine Anticipated discharge place: Clinical course to determine Patient was seen independently by Nurse Practitioner. This document was prepared using [employer] dictation software. Please allow for errors in pony worker while rare they do occur. Darryl Dougherty NP rendered care for this patient independently, reviewed the findings and plan as documented in the note above. I did not physically speak with or examine the patient on this date. Past Medical History Additional Past Medical History / Comment(s): anmeia, endometriosis Past Surgical History: Section Additional Past Surgical History / Comment(s): exploratory lap Past Psychological History: No Psychological Hx Reported Smoking Status: Never smoker Past Alcohol Use History: None Reported Past Drug Use History: None Reported - Past Family History Sister(s) Additional Family Medical History / Comment(s): Endometriosis Medications and Allergies Home Medications Medication Instructions Recorded Confirmed Type Ascorbic Acid [Vitamin C chew] 1,000 mg PO DAILY 12/15/23 12/15/23 History Ferrous Sulfate [Feosol] 325 mg PO DAILY 12/15/23 12/15/23 History Nitrofurantoin Monohyd/M-Cryst 100 mg PO Q12HR 12/15/23 12/15/23 History [Macrobid] Vitamin B-12(Unknown Dose) 1 tab PO DAILY 12/15/23 12/15/23 History Allergies Allergy/AdvReac Type Severity Reaction Status Date / Time No Known Allergies Allergy Verified 12/15/23 09:57 Physical Exam Vitals: Vital Signs Temp Pulse Resp BP Pulse Ox 12/15/23 09:09 52 L 16 115/66 98 12/15/23 07:28 62 16 121/62 100 12/15/23 06:27 84 22 125/74 100 12/15/23 06:05 98.0 F 128 H 24 125/84 100 Intake and Output 12/14/23 12/15/23 12/15/23 22:59 06:59 14:59 Other: Weight 80.739 kg Results CBC & Chem 7: 12/16/23 06:47 12/16/23 06:47 Labs: Abnormal Lab Results - Last 24 Hours (Table) 12/15/23 12/15/23 12/15/23 Range/Units 06:09 06:11 06:11 MCV 75.3 L (80.0-100.0) fL RDW 16.3 H (11.5-15.5) % Potassium 3.0 L (3.5-5.1) mmol/L Chloride 111 H (98-107) mmol/L Carbon Dioxide 13 L (22-30) mmol/L Glucose 131 H (74-99) mg/dL POC Glucose (mg/dL) 136 H (70-110) mg/dL Plasma Lactic Acid Clarence (0.7-2.0) mmol/L Calcium 10.3 H (8.4-10.2) mg/dL 12/15/23 Range/Units 06:11 MCV (80.0-100.0) fL RDW (11.5-15.5) % Potassium (3.5-5.1) mmol/L Chloride (98-107) mmol/L Carbon Dioxide (22-30) mmol/L Glucose (74-99) mg/dL POC Glucose (mg/dL) (70-110) mg/dL Plasma Lactic Acid Clarence 5.1 H* (0.7-2.0) mmol/L Calcium (8.4-10.2) mg/dL
[2023-12-15] MEDS: KETOROLAC 15 MG/ML 1 ML VIAL IVP PRN (12:17)
[2023-12-15] MEDS: HEPARIN SODIUM,PORCINE 5,000 UNIT/ML 1 ML VIAL SQ SCH (15:16)
[2023-12-15 17:42] LABS: African American GFR (CKD) >90 (>60 ml/min/1.73 sqM); Anion Gap 9 mmol/L; Blood Urea Nitrogen 7 mg/dL (7-17); Calcium 8.9 mg/dL (8.4-10.2); Carbon Dioxide 20 mmol/L (22-30); Chloride 109 mmol/L (98-107); Glucose 101 mg/dL (74-99); Non-African American GFR(CKD) >90 (>60 ml/min/1.73 sqM); Potassium 4.1 mmol/L (3.5-5.1); Sodium 138 mmol/L (137-145)
[2023-12-16 07:21] LABS: Anisocytosis Slight; Basophils % (A) 1 %; Eosinophils # (A) 0.1 k/uL (0-0.7); Eosinophils % (A) 2 %; HCT 31.8 % (34.0-46.0); HGB 10.2 gm/dL (11.4-16.0); Hypochromasia Slight; Lymphocytes # (A) 1.6 k/uL (1.0-4.8); Lymphocytes % (A) 31 %; MCH 25.1 pg (25.0-35.0); MCHC 32.1 g/dL (31.0-37.0); MCV 78.4 fL (80.0-100.0); Microcytosis Slight; Monocytes # (A) 0.3 k/uL (0-1.0); Monocytes % (A) 5 %; Neutrophils % (A) 60 %; Platelet Count 245 k/uL (150-450); RBC 4.06 m/uL (3.80-5.40); WBC 5.1 k/uL (3.8-10.6)
[2023-12-16 08:01] LABS: ALT 18 U/L (4-34); AST 23 U/L (14-36); African American GFR (CKD) >90 (>60 ml/min/1.73 sqM); Albumin 3.1 g/dL (3.5-5.0); Alkaline Phosphatase 77 U/L (38-126); Anion Gap 5 mmol/L; Blood Urea Nitrogen 8 mg/dL (7-17); Calcium 8.3 mg/dL (8.4-10.2); Carbon Dioxide 22 mmol/L (22-30); Chloride 110 mmol/L (98-107); Glucose 97 mg/dL (74-99); Non-African American GFR(CKD) >90 (>60 ml/min/1.73 sqM); Potassium 4.2 mmol/L (3.5-5.1); Sodium 137 mmol/L (137-145); Total Bilirubin 0.4 mg/dL (0.2-1.3); Total Protein 6.1 g/dL (6.3-8.2)
[2023-12-16] MEDS: CYANOCOBALAMIN 500 MCG TAB PO SCH (08:16)
[2023-12-16] MEDS: ASCORBIC ACID 500 MG TAB PO SCH (08:16)
[2023-12-16] MEDS: FERROUS SULFATE 325 MG TAB PO SCH (08:16)
--- NOTE | 2023-12-16 10:11 | P.PN ---
Subjective Progress Note Date: 12/16/23 Hospital Course: Patient is a very pleasant 38-year-old female with a past medical history of iron deficiency anemia and endometriosis. She presented to the hospital with a chief complaint of intractable abdominal pain. Patient reports severe suprapubic pain to midsternal pubic region and lower left suprapubic region radiating into her back awakening her from sleep this morning. She reports associated nausea and urinary retention, but denies any associated fevers, chills, diaphoresis, vomiting, hematuria, urinary frequency, urinary urgency, dysuria, hematuria, vaginal discharge, abnormal vaginal bleeding, or possibility of . She underwent full evaluation in the emergency department. Upon arrival vital signs as follows, vital signs as follows. Blood pressure 125/84, heart rate 128, respiratory rate 24, temp 98.0 F, and SpO2 of 100% on room air. EKG completed showing sinus bradycardia, will be permanent with ST depression in leads II, 3, aVF. CT abdomen and pelvis completed showing a 2.3 cm peripherally enhancing structure in the right ovary and mild pelvic free fluid with prominent hypodense areas within the cervix measuring up to 1.7 cm suspect cervical nabothian cysts. Kerr catheter placed for urine retention in the emergency department. Urinalysis completed negative for blood or infection. Urine hCG negative for . Pelvic ultrasound completed negative for acute process revealing no evidence of acute process showing no evidence for right ovarian torsion, left ovary was not seen on ultrasound secondary to overlying bowel gas but with reported normal on pelvic CT. Labs completed and reviewed. CBC showing no significant abnormalities. BMP revealed hypokalemia with potassium of 3.0 and high anion gap metabolic acidosis with chloride of 111, bicarb 13, and anion gap of 15. Blood glucose 136. Initial lactic acid 5.1. Calcium 10.3. Liver profile unremarkable. Lipase 106. Troponin negative at less than 0.012. Potassium was replaced and patient given 2 L bolus of 0.9% normal saline followed by maintenance infusion at 75 cc/h. Patient admitted under our services for lactic acidosis of unclear etiology with consultation to gynecology for evaluation of intractable abdominal pain believed to be caused by ovarian cyst/endometrial pain and cardiology for EKG changes. Physical exam: Patient seen and fully evaluated at bedside this morning. Patient tearful upon examination reports diffuse intractable lower abdominal pain. She also reports feeling very distended and swollen this morning. She denies any episodes of nausea or vomiting. Reports pain medications to help control pain but as soon as they wear off pain is again unbearable. Vital signs reviewed and stable. General: Nontoxic, no distress and appears stated age. Derm: Skin warm and dry, normal coloration for ethnicity. Head: Atraumatic, normocephalic and symmetric. Eyes: EOMs intact, no lid lag, and anicteric sclera Mouth: no lip lesions, mucus membranes moist Cardiovascular: regular rate and rhythm with normal S1S2, no murmur, positive posterior tibial pulses bilaterally, and cap refill < 2 seconds. Lungs: Respirations even, regular, and unlabored on room air. Lungs CTA bilaterally, no rhonchi, no rales, no wheezing, and no accessory muscle usage. Abdominal: soft appears slightly distended this morning, tenderness reported to suprapubic region and entire left lower quadrant upon palpation. Ext: ROM intact. No gross muscle atrophy, no edema, no contractures Neuro: Speech clear, face symmetrical and CN II-XII grossly intact with no noted focal neuro deficits Psych: Alert and oriented to person, place, time, and situation. Appropriate and pleasant affect. Assessment and Plan of Care: Intractable abdominal pain, believed to be caused by ovarian cyst/endometrial pain Urinary retention, likely secondary to acute abdominal pain believed to be resulting from ovarian cyst Lactic acidosis, resolved with IV fluid hydration High anion gap metabolic acidosis, resolved with IV fluid hydration -Kerr catheter was placed in the emergency department. Order placed to remove Kerr catheter and perform voiding trial while monitoring closely for postvoid residuals and/or retention. -Continue with gentle IV fluid hydration with 0.9% normal saline at 75 cc/h. -Urinalysis negative for blood, ketones, protein, or infection. -Urine hCG negative for . -Symptomatic care and pain management. -PROGRAMMING DEVELOPMENT PROJECT MANAGER consulted for intractable pain believed to be secondary to ovarian cyst/endometrial pain and evaluation of hypodense areas within the cervix. EKG changes History of recent syncopal episode 1 week ago, remains free from any cardiac complaints throughout this hospitalization -Cardiology consulted, placed order for echocardiogram to be completed -Telemetry monitoring -Troponin was negative at less than 0.012 upon admission and patient remains free from cardiac complaints during this admission Hypercalcemia, resolved after IV fluid hydration with corrected calcium of 9.0.. Iron deficiency anemia -Hemoglobin stable at 10.2. Continue ferrous sulfate 325 mg daily. Data and imaging reviewed: Morning labs reviewed. CBC showing microcytic anemia with hemoglobin of 10.2. BMP revealing mild hyperchloremia with chloride of 110 otherwise normal findings. Serum 8.3 and corrected calcium of 9.0. Vital signs reviewed and stable. Blood pressure 106/63, heart rate 64, respiratory rate 18, temp 97.9 F, and SpO2 100% on room air. CODE STATUS: Full code DVT prophylaxis: Heparin Anticipated discharge date: Clinical course to determine Anticipated discharge place: Clinical course to determine Patient was seen independently by Nurse Practitioner. This document was prepared using [employer] dictation software. Please allow for errors in clinic manager while rare they do occur. Darryl Dougherty NP rendered care for this patient independently, reviewed the findings and plan as documented in the note above. I did not physically speak with or examine the patient on this date. Objective - Vital Signs Vital signs: Vital Signs Temp 98.2 F 12/16/23 02:00 Pulse 57 L 12/16/23 02:00 Resp 16 12/16/23 02:00 BP 106/65 12/16/23 02:00 Pulse Ox 100 12/16/23 02:00 FiO2 Intake & Output 12/15/23 12/16/23 12/16/23 18:59 06:59 18:59 Output Total 2300 1250 Balance -2300 -1250 Weight 80.739 kg Output: Urine 2300 1250 Other: Voiding Method Indwelling Catheter Indwelling Catheter - Labs CBC & Chem 7: 12/16/23 06:47 12/16/23 06:47 Labs: Abnormal Lab Results - Last 24 Hours (Table) 12/15/23 12/16/23 Range/Units 17:02 06:47 Hgb 10.2 L (11.4-16.0) gm/dL Hct 31.8 L (34.0-46.0) % MCV 78.4 L (80.0-100.0) fL RDW 17.0 H (11.5-15.5) % Chloride 109 H (98-107) mmol/L Carbon Dioxide 20 L (22-30) mmol/L Glucose 101 H (74-99) mg/dL
--- NOTE | 2023-12-16 10:18 | P.CRDCN ---
History of Present Illness History of present illness: HISTORY OF PRESENT ILLNESS: This is a 38-year-old female with a past medical history significant for anemia and endometriosis. Patient does not follow with a natural resources specialist. We have been as ked to see the patient in consultation for EKG changes and sinus tachycardia. Patient examined at the bedside. Initially presented to the hospital with a chief complaint of abdominal pain. Patient was found to have an ovarian cyst and is awaiting evaluation by OB. Patient was also having urinary retention and has a indwelling catheter present. She currently denies chest pain or pressure. She denies shortness of breath. She denies any previous cardiac history. She denies history of hypertension, hyperlipidemia, or diabetes. She is a non- smoker. She reports a family history of CAD on her dad sides of the family. DIAGNOSTICS: - EKG reveals sinus tachycardia with diffuse ST depression, signs of LVH - Laboratory data: WBC 5.1. Hemoglobin 10.2. Platelet counts 245. Sodium 137. Potassium 4.2. BUN 8. Creatinine 0.66. Lactic acid 5.1. Troponin negative x 1. - Current home cardiac medications include none. REVIEW OF SYSTEMS: At the time of my exam: CONSTITUTIONAL: Denies fever or chills. HEENT: Denies blurred vision, vision changes, or eye pain. Denies hemoptysis CARDIOVASCULAR: Denies chest pain. Denies orthopnea. Denies PND. Denies palpitations RESPIRATORY: Denies shortness of breath. GASTROINTESTINAL: Denies abdominal pain. Denies nausea or vomiting. HEMATOLOGIC: Denies bleeding disorders. GENITOURINARY: Denies any blood in urine. SKIN: Denies pruitis. Denies rash. PHYSICAL EXAM: VITAL SIGNS: Reviewed. GENERAL: Well-developed in no acute distress. HEENT: Head is normocephalic. Pupils are equal, round. Sclerae anicteric. Mucous membranes of the mouth are moist. Neck supple. No JVD or thyromegaly LUNGS: Respirations even and unlabored. Lungs essentially clear to auscultation bilaterally. HEART: Regular rate and rhythm. S1 and S2 heard. ABDOMEN: Soft. Distended. + tenderness EXTREMITIES: Normal range of motion. No clubbing or cyanosis. Peripheral pul ses intact. No lower extremity edema NEUROLOGIC: Awake and alert. Oriented x 3. ASSESSMENT: Intractable abdominal pain Ovarian cyst Lactic acidosis Sinus tachycardia, likely physiological due to acute issues History of iron deficiency anemia Urinary retention requiring indwelling Kerr catheter History of endometriosis PLAN: Obtain 2D echo to assess cardiac structure and function Obtain additional troponin level Stable from a cardiac standpoint Further recommendations pending patient course Nurse practitioner note has been reviewed by physician. Signing provider agrees with the documented findings, assessment, and plan of care documented by [employer] as a scribe. Past Medical History Additional Past Medical History / Comment(s): anmeia, endometriosis History of Any Multi-Drug Resistant Organisms: None Reported Past Surgical History: Section Additional Past Surgical History / Comment(s): exploratory lap Past Anesthesia/Blood Transfusion Reactions: No Reported Reaction Past Psychological History: No Psychological Hx Reported Smoking Status: Never smoker Past Alcohol Use History: None Reported Past Drug Use History: None Reported Medications and Allergies Home Medications Medication Instructions Recorded Confirmed Type Ascorbic Acid [Vitamin C chew] 1,000 mg PO DAILY 12/15/23 12/15/23 History Ferrous Sulfate [Feosol] 325 mg PO DAILY 12/15/23 12/15/23 History Nitrofurantoin Monohyd/M-Cryst 100 mg PO Q12HR 12/15/23 12/15/23 History [Macrobid] Vitamin B-12(Unknown Dose) 1 tab PO DAILY 12/15/23 12/15/23 History Allergies Allergy/AdvReac Type Severity Reaction Status Date / Time No Known Allergies Allergy Verified 12/15/23 09:57 Physical Exam Vitals: Vital Signs Temp Pulse Pulse Resp BP BP Pulse Ox 12/16/23 07:00 97.9 F 64 18 106/63 100 12/16/23 02:00 98.2 F 57 L 16 106/65 100 12/15/23 20:00 97.9 F 55 L 124/77 100 12/15/23 18:00 68 16 120/76 98 12/15/23 16:06 70 16 115/67 100 12/15/23 12:16 80 16 117/66 99 12/15/23 09:09 52 L 16 115/66 98 Intake and Output 12/15/23 12/16/23 12/16/23 22:59 06:59 14:59 Output Total 650 600 700 Balance -650 -600 -700 Output: Urine 650 600 700 Other: Voiding Method Indwelling Catheter Weight 80.739 kg Results 12/16/23 06:47 12/16/23 06:47 Cardiac Enzymes 12/16/23 Range/Units 06:47 AST 23 (14-36) U/L CBC 12/16/23 Range/Units 06:47 WBC 5.1 (3.8-10.6) k/uL RBC 4.06 (3.80-5.40) m/uL Hgb 10.2 L (11.4-16.0) gm/dL Hct 31.8 L (34.0-46.0) % Plt Count 245 (150-450) k/uL Comprehensive Metabolic Panel 12/15/23 12/16/23 Range/Units 17:02 06:47 Sodium 138 137 (137-145) mmol/L Potassium 4.1 4.2 (3.5-5.1) mmol/L Chloride 109 H 110 H (98-107) mmol/L Carbon Dioxide 20 L 22 (22-30) mmol/L BUN 7 8 (7-17) mg/dL Creatinine 0.62 0.66 (0.52-1.04) mg/dL Glucose 101 H 97 (74-99) mg/dL Calcium 8.9 8.3 L (8.4-10.2) mg/dL AST 23 (14-36) U/L ALT 18 (4-34) U/L Alkaline Phosphatase 77 (38-126) U/L Total Protein 6.1 L (6.3-8.2) g/dL Albumin 3.1 L (3.5-5.0) g/dL Current Medications Generic Name Dose Route Start Last Admin Trade Name Malikq PRN Reason Stop Dose Admin Ascorbic Acid 1,000 mg 12/16/23 09:00 12/16/23 08:16 Ascorbic Acid 500 Mg Tab PO 1,000 mg DAILY VIANNEY Administration Cyanocobalamin 500 mcg 12/16/23 09:00 12/16/23 08:16 Cyanocobalamin 500 Mcg Tab PO 500 mcg DAILY VIANNEY Administration Ferrous Sulfate 325 mg 12/16/23 09:00 12/16/23 08:16 Ferrous Sulfate 325 Mg Tab PO 325 mg DAILY VIANNEY Administration Heparin Sodium (Porcine) 5,000 unit 12/15/23 16:00 12/16/23 08:16 Heparin Sodium,Porcine 5,000 Unit/Ml 1 Ml Vial SQ Not Given Q8HR VIANNEY Hydromorphone HCl 0.5 mg 12/15/23 09:30 12/16/23 06:11 Hydromorphone 0.5 Mg/0.5 Ml Syringe IVP 0.5 mg Q3HR PRN Administration Moderate Pain (Scale 4 to 6) Sodium Chloride 1,000 mls @ 75 mls/hr 12/15/23 09:30 12/16/23 06:16 Saline 0.9% IV 75 mls/hr .[id number] VIANNEY Administration Ketorolac Tromethamine 15 mg 12/15/23 09:30 12/16/23 05:09 Ketorolac 15 Mg/Ml 1 Ml Vial IVP 12/18/23 09:31 15 mg Q6HR PRN Administration Moderate Pain (Scale 4 to 6) Naloxone HCl 0.2 mg 12/15/23 09:30 Naloxone 0.4 Mg/Ml 1 Ml Vial IV Q2M PRN Opioid Reversal Ondansetron HCl 4 mg 12/15/23 09:30 Ondansetron 4 Mg/2 Ml Vial IVP Q8HR PRN Nausea And Vomiting Intake and Output 12/15/23 12/16/23 12/16/23 22:59 06:59 14:59 Output Total 650 600 700 Balance -650 -600 -700 Output: Urine 650 600 700 Other: Voiding Method Indwelling Catheter Weight 80.739 kg 12/16/23 06:47 12/16/23 06:47
--- NOTE | 2023-12-16 18:39 | P.OBCN ---
History of Present Illness Consult date: 12/16/23 Requesting physician: Darryl Dougherty Reason for consult: pelvic pain Chief complaint: Severe abdominal pain History of present illness: This is a very pleasant 38-year-old female 2 para 2 who presented to the emergency room with a sudden onset of a tearing, burning sensation that started in her lower abdomen and radiated to her epigastric area. She stated it started on Friday night and she initially thought she was having heartburn and took Tums. It did get better for about 10 minutes and then 30 minutes later it became much worse with a tearing and burning sensation starting in her lower abdomen going up towards her epigastric area. She took more Tums and drinks some milk but it became worse to where she couldn't even walk. She denied any vomiting. She did have some nausea along with this. The pain also was in her lower back. Her called the ambulance because she could not even walk with the pain. She was given some fentanyl in the ambulance and after she arriv ed at the hospital was unable to urinate. She thinks it was because of the fentanyl. She did urinate earlier in the evening prior to going to the hospital. She also had a normal bowel movement on Friday afternoon. She has not had another bowel movement since that time. She was seen in the emergency room on December 04 due to weakness and a near syncopal episode. Her primary care physician was concerned about severe anemia and advised her to take iron supplementation. Hemoglobin on that admission was 11.6. She was given antibiotics with Keflex at that visit due to suspected urinary tract infection. She told me that she was actually taking Macrobid and had 2 more days left. Urine culture from that visit is negative for infection. Patient states her pain on admission was a 9-10 and after multiple doses of pain medication it did come down to about a 6. When she is just resting in the bed her pain is about a 4. It does worsen with movement. Patient states she was diagnosed with en dometriosis probably about 10 years ago. She has tried multiple control pills and hormonal control but all of them did not help and made her bleeding worse. She also has a history of lower back pain for years. She states during her second at about 15 weeks she started having severe pain and underwent an exploratory laparotomy. They did find a large chocolate cyst she believes on her left ovary that they removed and she was also told she had significant scar tissue over her bladder and multiple adhesions in her pelvis area. Patient states her endometriosis pain usually occurs about the week before her menses and lasts into her menses. Her pain has been worsening over the last few years and she did have intentions to establish with a cadd instructor here shortly. She just recently moved here from [place]. Her last menstrual period was on 11/24/2023 and she has been having fairly regular monthly periods lasting about 4 days. She has not been having intercourse with her due to pain. The last intercourse was about 2-3 months ago. Her has had a vasectomy and so she is not concerned about . Computed tomography scan on 12/15/2023 showed urinary bladder distended, uterus is retroverted and prominent hypodense areas in the region of the cervix were noted up to 1.7 cm suspected nabothian cysts. Ovaries were visualized and there was a peripherally enhancing 2.3 cm cyst cyst on the right ovary with mild pelvic free fluid and no pelvic lymphadenopathy. Appendix was noted to be normal with no pericolonic inflammatory changes. There was mild to moderate stool noted. Pelvic ultrasound on 12/15/2023 showed a uterus measuring 7.6 x 3.6 x 2.9 cm with an endometrial stripe of 0.4 cm. Her right ovary appeared normal size and did have an involuting cyst measuring [address] findings. Left ovary was not seen due to overlying bowel gas. There was normal arterial and venous flow to the right ovary and no evidence of torsion. Posterior cul-de-sac appeared normal. Obstetrical history: 2 para 2. History of 2 deliveries. Her first was due to failure to progress and her second was a scheduled section. Both were at term. Her second was complicated by the above noted pain at 15 weeks and subsequent exploratory laparotomy. Gynecologic history: No history of sexually transmitted diseases. Menses are regular. She does have a history of endometriosis. Family history: Her paternal aunt had endometriosis and did have a hysterectomy but then later at age 52 of ovarian cancer. Her sister also has a history of endometriosis. Review of Systems Constitutional: Reports weakness, Denies chills, Denies fever Gastrointestinal: Reports abdominal pain, Reports bloating (Has noticed more bloating in her lower abdomen since her admission), Reports nausea, Denies change in bowel habits, Denies constipation, Denies diarrhea, Denies loss of appetite, Denies vomiting Genitourinary: Reports dysmenorrhea, Reports pelvic pain, Denies abnormal vaginal bleeding Menstruation: Reports menses 1-7 days Musculoskeletal: Reports low back pain Past Medical History Additional Past Medical History / Comment(s): anemia, endometriosis History of Any Multi-Drug Resistant Organisms: None Reported Past Surgical History: Section (Times 2) Additional Past Surgical History / Comment(s): exploratory lap when she was 15 weeks with her second child, diagnosed with a chocolate cyst that was removed Past Anesthesia/Blood Transfusion Reactions: No Reported Reaction Past Psychological History: No Psychological Hx Reported Smoking Status: Never smoker Past Alcohol Use History: None Reported Past Drug Use History: None Reported - Past Family History Sister(s) Additional Family Medical History / Comment(s): Endometriosis Medications and Allergies Home Medications Medication Instructions Recorded Confirmed Type Ascorbic Acid [Vitamin C chew] 1,000 mg PO DAILY 12/15/23 12/15/23 History Ferrous Sulfate [Feosol] 325 mg PO DAILY 12/15/23 12/15/23 History Nitrofurantoin Monohyd/M-Cryst 100 mg PO Q12HR 12/15/23 12/15/23 History [Macrobid] Vitamin B-12(Unknown Dose) 1 tab PO DAILY 12/15/23 12/15/23 History Allergies Allergy/AdvReac Type Severity Reaction Status Date / Time No Known Allergies Allergy Verified 12/15/23 09:57 Exam Osteopathic Statement: *. No significant issues noted on an osteopathic structural exam other than those noted in the History and Physical/Consult. Vital Signs Temp Pulse Resp BP Pulse Ox 12/16/23 15:00 98.1 F 65 18 107/68 98 12/16/23 07:00 97.9 F 64 18 106/63 100 12/16/23 02:00 98.2 F 57 L 16 106/65 100 12/15/23 20:00 97.9 F 55 L 124/77 100 Intake and Output 12/16/23 12/16/23 12/16/23 06:59 14:59 22:59 Output Total 600 2200 Balance -600 -2200 Output: Urine 600 2200 Other: Voiding Method Indwelling Catheter Indwelling Catheter - OBG Physical Exam Abdomen: Abdomen is soft and no specific distention is visualized. She is very tender all the way across her lower abdomen and suprapubic area. There is no guarding or rebound noted. Abdomen: bowel sounds hypoactive Abdomen detail: right lower quadrant: tenderness, left lower quadrant: tenderness Uterus: Patient refuses pelvic exam at this time due to pain Results Result Diagrams: 12/16/23 06:47 12/16/23 06:47 Abnormal Lab Results - Last 24 Hours (Table) 12/16/23 12/16/23 Range/Units 06:47 06:47 Hgb 10.2 L (11.4-16.0) gm/dL Hct 31.8 L (34.0-46.0) % MCV 78.4 L (80.0-100.0) fL RDW 17.0 H (11.5-15.5) % Chloride 110 H (98-107) mmol/L Calcium 8.3 L (8.4-10.2) mg/dL Total Protein 6.1 L (6.3-8.2) g/dL Albumin 3.1 L (3.5-5.0) g/dL CT scan - abdomen: report reviewed CT scan - pelvis: report reviewed US - abdomen: report reviewed Assessment and Plan (1) Abdominal pain Current Visit: Yes Status: Acute Code(s): R10.9 - UNSPECIFIED ABDOMINAL PAIN SNOMED Code(s): 54238304 (2) Endometriosis Narrative/Plan: By history Current Visit: Yes Status: Acute Code(s): N80.9 - ENDOMETRIOSIS, UNSPECIFIED SNOMED Code(s): 151509449 Plan: My impression is that this patient does have genuine severe lower abdominal pain. She states this pain does not feel like her normal endometriosis pain although it is in the same area that she usually gets pain from her endo metriosis. She states it does not feel like an ovarian cyst rupture because she has had these before and the pain is different. I do not see any acute problems on her CAT scan or ultrasound that would require surgery. I am concerned that possibly her oral iron may be contributing to this pain even though she has had normal bowel movements. The CAT scan did show mild to moderate stool in her bowel. Since this is the only thing new that she has been on other than antibiotic, we may want to hold her oral iron to see if this does improve her symptoms. I don't see any sign of infection. I have ordered a repeat pelvic ultrasound just to ensure that nothing new is evolving due to her continued pain. If ultrasound is stable, I don't recommend any intervention from a gynecologic standpoint at this time. Patient is aware to call [facility] MECHANICAL ENGINEERING ADVISOR after she is discharged to try to establish with a new cadd instructor since our office will be closing permanently next week. Thank you very much for this consult. Please contact me with any further questions or concerns.
--- NOTE | 2023-12-17 01:08 | US ---
EXAMINATION TYPE: US pelvic complete DATE OF EXAM: 12/16/2023 COMPARISON: 12/15/23 CLINICAL INDICATION: Female, 38 years old with history of Continued pain, follow-up from ultrasound o n 12/14; Pt states pain hasn't changed since yesterday TECHNIQUE: . Transabdominal sonographic images of the pelvis were acquired. Date of LMP: 1 month ago EXAM MEASUREMENTS: Uterus: 7.4 x 7.9 x 6.0 cm Endometrial Stripe: 1.0 cm Right Ovary: 3.9 x 2.3 x 2.5 cm Left Ovary: 3.1 x 2.5 x 1.8 cm 1. Uterus: Retroverted 2 hypoechoic areas seen in cervix 2. Endometrium: wnl 3. Right Ovary: Hypoechoic area seen measuring 2.0 x 1.2 x 0.7cm 4. Left Ovary: wnl Spectral, color and waveform doppler imaging shows good arterial and venous flow within the ovaries ; 5. Bilateral Adnexa: There appears to be some free fluid in right adnexa adjacent to ovary 6. Posterior cul-de-sac: wnl Retroverted uterus redemonstrated. 2 small nabothian cysts in the cervix are suspected. Some free flu id in the right pelvis is present on current study. Involuting cyst in the right ovary redemonstrated . IMPRESSION: Satisfactory visualization of left ovary on current study. Small amount of free fluid in the right pelvis noted on current study.
[2023-12-17] MEDS: ONDANSETRON 4 MG/2 ML VIAL IVP PRN (06:57)
--- NOTE | 2023-12-17 07:50 | P.PN ---
Progress Note - Text Progress Note Date: 12/17/23 I have reviewed her follow-up pelvic ultrasound. There is redemonstration of a small 2 cm right ovarian cyst with a very small amount of free fluid near the right ovary. She additionally still has small nabothian cysts noted on her cervix which are insignificant. Again there is still no acute process that would be the cause of the significant pain that she is having. A 2 cm cyst should not be a significant cause of pain and even a ruptured cyst would not cause this much pain. I believe that if she continues to have pain, investigation into other sources of her pain need to be looked at. I will sign off at this time. Patient is aware that she should follow-up with a extrusion die corrector after she is discharged from the hospital and I have recommended [facility] since our office will be closing.
[2023-12-17 08:12] VITALS: RESP 18
--- NOTE | 2023-12-17 08:55 | CA ---
Transthoracic Echo Report Name: Dalila Sahu Age: 38 Gender: F : 1985 Exam Date: 12/16/2023 09:59 Exam Location: [facility] Ht (in): 66 Wt (lb): 178 Ordering Physician: Nae Hopkins Attending/Referring Phys: [id number], Kellie Log[employer] Analytics Manager Candi Mon RDCS Procedure CPT: Indications: LV function Cardiac Hx: Technical Quality: Contrast 1: Total Dose (mL): Contrast 2: Total Dose (mL): MEASUREMENTS (Male / Female) Normal Values 2D ECHO LV Diastolic Diameter PLAX 4.4 cm 4.2 - 5.9 / 3.9 - 5.3 cm LV Systolic Diameter PLAX 3.1 cm IVS Diastolic Thickness 0.8 cm 0.6 - 1.0 / 0.6 - 0.9 cm LVPW Diastolic Thickness 0.8 cm 0.6 - 1.0 / 0.6 - 0.9 cm LV Relative Wall Thickness 0.4 Aortic Root Diameter 3.3 cm LA Systolic Diameter LX 2.8 cm 3.0 - 4.0 / 2.7 - 3.8 cm DOPPLER AV Peak Velocity 154.3 cm/s AV Peak Gradient 9.5 mmHg AV Mean Velocity 116.7 cm/s AV Mean Gradient 6.1 mmHg AV Velocity Time Integral 30.7 cm LVOT Peak Velocity 108.9 cm/s LVOT Peak Gradient 4.7 mmHg LVOT Velocity Time Integral 22.8 cm MV Area PHT 2.4 cm??? Mitral E Point Velocity 125.0 cm/s Mitral A Point Velocity 88.5 cm/s Mitral E to A Ratio 1.4 MV Deceleration Time 317.3 ms PV Peak Velocity 84.5 cm/s PV Peak Gradient 2.9 mmHg FINDINGS Left Ventricle Left ventricular ejection fraction is estimated at 55-60 %. Normal left ventricular systolic function with no obvious regional wall motion abnormalities. Right Ventricle Normal right ventricular size. Unable to estimate the right ventricular systolic pressure. Right Atrium Normal right atrial size. Left Atrium Normal left atrial size. Mitral Valve Trace mitral regurgitation. Aortic Valve Aortic valve not well visualized. Tricuspid Valve No tricuspid regurgitation. Pulmonic Valve No pulmonic regurgitation. Pericardium No pericardial effusion. Aorta Normal size aortic root. CONCLUSIONS Technically difficult study for interpretation Normal LV systolic function Poorly visualized aortic valve Previewed by: Dr. Warner Wick MD (Electronically Signed) Final Date: 17 December 2023 08:55
[2023-12-17 09:38] LABS: Anisocytosis Slight; HCT 32.4 % (34.0-46.0); MCH 26.2 pg (25.0-35.0); MCV 77.2 fL (80.0-100.0); Mean Platelet Volume 7.3; Microcytosis Slight; Platelet Count 253 k/uL (150-450); RDW 17.3 % (11.5-15.5); WBC 8.1 k/uL (3.8-10.6)
[2023-12-17 09:51] LABS: ALT 21 U/L (4-34); AST 25 U/L (14-36); African American GFR (CKD) >90 (>60 ml/min/1.73 sqM); Albumin 3.5 g/dL (3.5-5.0); Albumin/Globulin Ratio 1.1; Alkaline Phosphatase 80 U/L (38-126); Anion Gap 14 mmol/L; Blood Urea Nitrogen 10 mg/dL (7-17); Calcium 8.7 mg/dL (8.4-10.2); Carbon Dioxide 14 mmol/L (22-30); Chloride 110 mmol/L (98-107); Globulin 3.3 g/dL; Glucose 149 mg/dL (74-99); Non-African American GFR(CKD) >90 (>60 ml/min/1.73 sqM); Potassium 3.5 mmol/L (3.5-5.1); Sodium 138 mmol/L (137-145); Total Bilirubin 0.3 mg/dL (0.2-1.3); Total Protein 6.8 g/dL (6.3-8.2)
--- NOTE | 2023-12-17 10:01 | P.PN ---
Subjective HISTORY OF PRESENT ILLNESS: This is a 38-year-old female with a past medical history significant for anemia and endometriosis. Patient does not follow with a strand forming machine operator. We have been asked to see the patient in consultation for EKG changes and sinus tachycardia. Patient examined at the bedside. Initially presented to the hospital with a chi ef complaint of abdominal pain. Patient was found to have an ovarian cyst and is awaiting evaluation by OB. Patient was also having urinary retention and has a indwelling catheter present. She currently denies chest pain or pressure. She denies shortness of breath. She denies any previous cardiac history. She denies history of hypertension, hyperlipidemia, or diabetes. She is a non- smoker. She reports a family history of CAD on her dad sides of the family. DIAGNOSTICS: - EKG reveals sinus tachycardia with diffuse ST depression, signs of LVH - Laboratory data: WBC 5.1. Hemoglobin 10.2. Platelet counts 245. Sodium 137. Potassium 4.2. BUN 8. Creatinine 0.66. Lactic acid 5.1. Troponin negative x 1. - Current home cardiac medications include none. 12/17/2023 Patient examined this morning at the bedside. Patient denies any chest pain or pressure. She denies any shortness of breath. She continues to report abdominal pain. She states she is awaiting a second opinion from another FINANCIAL REPORT SERVICE SALES AGENT. Echocardiogram obtained revealing ejection fraction 55 to 60% with trace MR. Telemetry reveals sinus mechanism. PHYSICAL EXAM: VITAL SIGNS: Reviewed. GENERAL: Well-developed in no acute distress. HEENT: Head is normocephalic. Pupils are equal, round. Sclerae anicteric. Mucous membranes of the mouth are moist. Neck supple. No JVD or thyromegaly LUNGS: Respirations even and unlabored. Lungs essentially clear to auscultation bilaterally. HEART: Regular rate and rhythm. S1 and S2 heard. ABDOMEN: Soft. Distended. + tenderness EXTREMITIES: Normal range of motion. No clubbing or cyanosis. Peripheral pulses intact. No lower extremity edema NEUROLOGIC: Awake and alert. Oriented x 3. ASSESSMENT: Intractable abdominal pain Ovarian cyst Lactic acidosis Sinus tachycardia, likely physiological due to acute issues, resolved History of iron deficiency anemia Urinary retention requiring indwelling Kerr catheter History of endometriosis PLAN: Patient is currently stable from a cardiac standpoint with no further inpatient recommendations We will sign off. Please reconsult if needed. Nurse practitioner note has been reviewed by physician. Signing provider agrees with the documented findings, assessment, and plan of care documented by CERAMICS ARTIST as a scribe. Objective - Vital Signs Vital signs: Vital Signs Temp 97.1 F L 12/17/23 07:00 Pulse 71 12/17/23 07:00 Resp 18 12/17/23 07:00 BP 120/73 12/17/23 07:00 Pulse Ox 100 12/17/23 07:00 FiO2 Intake & Output 12/16/23 12/17/23 12/17/23 18:59 06:59 18:59 Output Total 2700 Balance -2700 Output: Urine 2700 Other: Voiding Method Indwelling Catheter Bedside Commode # Voids 1 - Labs CBC & Chem 7: 12/17/23 09:20 12/16/23 06:47 Labs: Abnormal Lab Results - Last 24 Hours (Table) 12/17/23 Range/Units 09:20 Hgb 11.0 L (11.4-16.0) gm/dL Hct 32.4 L (34.0-46.0) % MCV 77.2 L (80.0-100.0) fL RDW 17.3 H (11.5-15.5) %
[2023-12-17] MEDS: oxyCODONE-APAP 7.5-325MG 1 EACH TAB PO PRN (10:23)
--- NOTE | 2023-12-17 13:43 | P.GSCN ---
History of Present Illness Consult date: 12/17/23 History of present illness: CHIEF COMPLAINT: Abdominal pain HISTORY OF PRESENT ILLNESS: This is a 38-year-old female who presented to the hospital with complaints of lower abdominal pain that started 3 days ago. Patient has a known history of endometriosis with heavy periods with clotting. She reports that her previous PECAN HULLER in [place] had talked to her about a possible hysterectomy. However, patient has now moved to [place] and is working on being seen by PECAN HULLER out of [facility]. Patient reports having sharp pains from the vagina and rectum that radiate up into the abdomen. She describes a burning sensation as well as a pulling sensation. She had some back cramping. She does report that this feels similar to the endometriosis but is more severe and re quiring IV pain medication. She reports she has been having bowel movements have been soft. She is never had a colonoscopy. She has had 2 C-sections and an exploratory laparotomy with lysis of adhesions for endometriosis. CT scan abdomen and pelvis had shown a 2.3 cm cyst in the right ovary and mild pelvic free fluid. Patient has been seen by PECAN HULLER service. Surgical service consulted for abdominal pain. Patient did have urinary retention on admission requiring Kerr catheter. Kerr catheter has been removed and patient urinating without difficulty. PAST MEDICAL HISTORY: See list. PAST SURGICAL HISTORY: See list. MEDICATIONS: See list. ALLERGIES: See list. SOCIAL HISTORY: No illicit drug use. REVIEW OF SYSTEMS: CONSTITUTIONAL: Denies fever or chills. HEENT: Denies blurred vision, vision changes, or eye pain. Denies hemoptysis ENDOCRINE: Denies heat or cold intolerance. CARDIOVASCULAR: Denies chest pain or pressure. RESPIRATORY: No shortness of breath. GASTROINTESTINAL: Denies abdominal pain. Denies nausea or vomiting. NEURO: Denies history of seizures. PSYCH: No depression or suicidal ideation HEMATOLOGIC: Denies bleeding disorders. LYMPHATIC: The patient denies any lumps and bumps around the neck. GENITOURINARY: Denies any blood in urine or increased urinary frequency. MUSCULOSKELETAL: Denies myalgias. Denies joint swelling. Denies decreased range of motion beyond patients baseline. SKIN: Denies pruitis. Denies rash. PHYSICAL EXAM: VITAL SIGNS: Reviewed GENERAL: Well-developed in no acute distress. HEENT: No sclera icterus. Extraocular movements grossly intact. Moist buccal mucosa. Head is atraumatic, normocephalic. Hears conversational speech. No nasal drainage. NECK: Supple without lymphadenopathy. CHEST: Non-labored respirations and equal bilateral excursions. CARDIOVASCULAR: Palpable 2+ radial pulses. ABDOMEN: Soft. Nondistended. Tenderness to palpation across the lower abdomen MUSCULOSKELETAL: No clubbing or cyanosis. NEUROLOGIC: No focal or lateralizing signs. Cranial nerves II through XII grossly intact. PSYCH: Appropriate affect. Alert and oriented to person, place and time. SKIN: Well perfused. Good skin turgor. LABORATORY DATA: WBC 8.1 Hgb 11 platelets 253 Sodium 138 potassium 3.5 creatinine 0.67 Lactic acid 5.1 down to 0.9 LFTs normal IMAGING: CT scan abdomen and pelvis reports a 2.3 cm peripheral enhancing cyst of the right ovary and mild pelvic free fluid. Correlate for recently ruptured follic le or functional cyst. Prominent hypodense areas within the cervix measuring up to 1.7 cm. Suspect cervical nabothian cysts. Pelvic ultrasound reports satisfactory visualization of right ovary. Small amount of free fluid in the right pelvis noted on current study. KUB x-ray pending ASSESSMENT: 1. Abdominal pain likely related to endometriosis 2. Endometriosis 3. 2.3 cm right ovarian cyst 4. Urinary retention resolved 5. Elevated lactic acid level improved with IV fluids PLAN: -No surgical intervention planned -Recommend outpatient follow-up -Continue supportive care Physician [facility] Interviews Intern note has been reviewed by physician. Signing provider agrees with the documented findings, assessment, and plan of care. Past Medical History Additional Past Medical History / Comment(s): anmeia, endometriosis History of Any Multi-Drug Resistant Organisms: None Reported Past Surgical History: Section Additional Past Surgical History / Comment(s): exploratory lap Past Anesthesia/Blood Transfusion Reactions: No Reported Reaction Past Psychological History: No Psychological Hx Reported Smoking Status: Never smoker Past Alcohol Use History: None Reported Past Drug Use History: None Reported - Past Family History Sister(s) Additional Family Medical History / Comment(s): Endometriosis Medications and Allergies Home Medications Medication Instructions Recorded Confirmed Type Ascorbic Acid [Vitamin C chew] 1,000 mg PO DAILY 12/15/23 12/15/23 History Ferrous Sulfate [Feosol] 325 mg PO DAILY 12/15/23 12/15/23 History Nitrofurantoin Monohyd/M-Cryst 100 mg PO Q12HR 12/15/23 12/15/23 History [Macrobid] Vitamin B-12(Unknown Dose) 1 tab PO DAILY 12/15/23 12/15/23 History Allergies Allergy/AdvReac Type Severity Reaction Status Date / Time No Known Allergies Allergy Verified 12/15/23 09:57 Surgical - Exam Vital Signs Temp Pulse Resp BP Pulse Ox 98.0 F 128 H 24 125/84 100 12/15/23 06:05 12/15/23 06:05 12/15/23 06:05 12/15/23 06:05 12/15/23 06:05 Results - Labs 12/17/23 09:20 12/17/23 09:20 Abnormal Lab Results - Last 24 Hours (Table) 12/17/23 12/17/23 12/17/23 Range/Units 09:20 09:20 09:20 Hgb 11.0 L (11.4-16.0) gm/dL Hct 32.4 L (34.0-46.0) % MCV 77.2 L (80.0-100.0) fL RDW 17.3 H (11.5-15.5) % Chloride 110 H (98-107) mmol/L Carbon Dioxide 14 L (22-30) mmol/L Glucose 149 H (74-99) mg/dL Plasma Lactic Acid Clarence 2.8 H* (0.7-2.0) mmol/L Diabetes panel 12/17/23 Range/Units 09:20 Sodium 138 (137-145) mmol/L Potassium 3.5 (3.5-5.1) mmol/L Chloride 110 H (98-107) mmol/L Carbon Dioxide 14 L (22-30) mmol/L BUN 10 (7-17) mg/dL Creatinine 0.67 (0.52-1.04) mg/dL Glucose 149 H (74-99) mg/dL Calcium 8.7 (8.4-10.2) mg/dL AST 25 (14-36) U/L ALT 21 (4-34) U/L Alkaline Phosphatase 80 (38-126) U/L Total Protein 6.8 (6.3-8.2) g/dL Albumin 3.5 (3.5-5.0) g/dL Calcium panel 12/17/23 Range/Units 09:20 Calcium 8.7 (8.4-10.2) mg/dL Albumin 3.5 (3.5-5.0) g/dL Pituitary panel 12/17/23 Range/Units 09:20 Sodium 138 (137-145) mmol/L Potassium 3.5 (3.5-5.1) mmol/L Chloride 110 H (98-107) mmol/L Carbon Dioxide 14 L (22-30) mmol/L BUN 10 (7-17) mg/dL Creatinine 0.67 (0.52-1.04) mg/dL Glucose 149 H (74-99) mg/dL Calcium 8.7 (8.4-10.2) mg/dL Adrenal panel 12/17/23 Range/Units 09:20 Sodium 138 (137-145) mmol/L Potassium 3.5 (3.5-5.1) mmol/L Chloride 110 H (98-107) mmol/L Carbon Dioxide 14 L (22-30) mmol/L BUN 10 (7-17) mg/dL Creatinine 0.67 (0.52-1.04) mg/dL Glucose 149 H (74-99) mg/dL Calcium 8.7 (8.4-10.2) mg/dL Total Bilirubin 0.3 (0.2-1.3) mg/dL AST 25 (14-36) U/L ALT 21 (4-34) U/L Alkaline Phosphatase 80 (38-126) U/L Total Protein 6.8 (6.3-8.2) g/dL Albumin 3.5 (3.5-5.0) g/dL
--- NOTE | 2023-12-17 14:43 | XR ---
EXAMINATION TYPE: XR KUB portable DATE OF EXAM: 12/17/2023 COMPARISON: NONE HISTORY: 38 year-old female abdominal pain, assess stool burden FINDINGS: No dilated small bowel. No suspicious calcifications are seen. Lung bases are clear. Supine imaging limited for assessment of free air. There is mild scattered throughout the colon with air ex tending distally to the rectum. IMPRESSION: Mild overall stool burden. Nonobstructive bowel gas pattern.
--- NOTE | 2023-12-17 15:31 | P.DS ---
Providers Date of admission: 12/17/23 12:19 Expected date of discharge: 12/17/23 Attending physician: Samuel Middleton MD Consults: 12/16/23 16:26 Consult Physician Routine Consulting Provider: Nessa Kemp Consult Reason/Comments: suprapubic abd pain, cyst, concerns of endometreosis Do you want consulting provider notified?: Already Contacted 12/17/23 08:04 Consult Physician Routine Consulting Provider: Jamee Avery Consult Reason/Comments: abdominal pain Do you want consulting provider notified?: Yes Primary care physician: [facility] Course: 38-year-old female with a past medical history of iron deficiency anemia and endometriosis. She presented to the hospital with a chief complaint of intractable abdominal pain. Patient reports severe suprapubic pain to midsternal pubic region and lower left suprapubic region radiating into her back awakening her from sleep this morning. She reports associated nausea and urinary retention, vaginal discharge, abnormal vaginal bleeding, or possibility of . She underwent full evaluation in the emergency department. Vital signs on admission: blood pressure 125/84, heart rate 128, respiratory rate 24, temp 98.0 F, and SpO2 of 100% on room air. EKG completed showing sinus bradycardia, will be permanent with ST depression in leads II, 3, aVF. CT abdomen and pelvis completed showing a 2.3 cm peripherally enhancing structure in the right ovary and mild pelvic free fluid with prominent hypodense areas within the cervix measuring up to 1.7 cm suspect cervical nabothian cysts. Kerr catheter placed for urine retention in the emergency department. Urinalysis completed negative for blood or infection. Urine hCG negative for . Pelvic ultrasound completed negative for acute process revealing no evidence of acute process showing no evidence for right ovarian torsion, left ovary was not seen on ultrasound secondary to overlying bowel gas but with reported normal on pelvic CT. CBC showing no significant abnormalities. BMP revealed hypokalemia with potassium of 3.0 and high anion gap metabolic acidosis with chloride of 111, bicarb 13, and anion gap of 15. Blood glucose 136. Initial lactic acid 5.1. Calcium 10.3. Liver profile unremarkable. Lipase 106. Troponin negative at less than 0.012. Potassium was replaced and patient given 2 L bolus of 0.9% normal saline followed by maintenance infusion at 75 cc/h. Patient admitted under our services for lactic acidosis of unclear etiology with consultation to gynecology for evaluation of intractable abdominal pain believed to be caused by ovarian cyst/endometrial pain and cardiology for EKG changes. Cardiology consulted, recommended Echo which showed EF 55-60%, trace MR, no f urther intervention recommended. OBGYN and Surgery consulted, recommended no further workup or intervention, outpatient follow up. 12/16 Patient was seen and examined. She reports similar location of her pain with endometriosis but describes this pain as tearing in nature rather than stabbing which is typical for her. Her pain is cyclical, worse 10 days prior to her menses. She has tried OCPs and IUDs in the past but stopped taking them due to side effects. She is open to hysterectomy and possible salpingo-oophorectomy due to her family history of ovarian cancer. She feels nauseous today, but relates it to Dilaudid, which improved througout the day when discussed with nursing when switched to Percocet and Toradol PRN. She is currently voiding freely and does not feel as if she is retaining any urine. Nursing reports she has an appointment with OBGYN in [place] on Friday and is requesting discharge. She is advised to drink plenty of water in the meantime. General: non toxic, mild distress, appears at stated age Derm: warm, dry Head: atraumatic, normocephalic, symmetric Eyes: EOMI, no lid lag, anicteric sclera Mouth: no lip lesion, mucus membranes moist Cardiovascular: S1S2 reg, no murmur Lungs: CTA bilateral, no rhonchi, no rales , no accessory muscle use Psych: Alert, oriented, appropriate affect Discharge Diagnosis: Intractable abdominal pain, believed to be caused by ovarian cyst/endometrial pain Urinary retention, likely secondary to acute abdominal pain believed to be resulting from ovarian cyst Lactic acidosis, resolved with IV fluid hydration High anion gap metabolic acidosis, resolved with IV fluid hydration EKG changes History of recent syncopal episode 1 week ago, remains free from any cardiac complaints throughout this hospitalization Hypercalcemia, resolved after IV fluid hydration Iron deficiency anemia This complex discharge took 35 minutes to complete. Patient Condition at Discharge: Stable Plan - Discharge Summary New Discharge Prescriptions: New oxyCODONE-APAP 7.5-325MG [Percocet 7.5-325 mg] 1 each PO Q4HR PRN #18 tab PRN Reason: Pain Continue Ascorbic Acid [Vitamin C chew] 1,000 mg PO DAILY Ferrous Sulfate [Iron (65 MG Elemental)] 325 mg PO DAILY Vitamin B-12(Unknown Dose) 1 tab PO DAILY Discontinued Nitrofurantoin Monohyd/M-Cryst [Macrobid] 100 mg PO Q12HR Discharge Medication List Ascorbic Acid [Vitamin C chew] 1,000 mg PO DAILY 12/15/23 [History] Ferrous Sulfate [Iron (65 MG Elemental)] 325 mg PO DAILY 12/15/23 [History] Vitamin B-12(Unknown Dose) 1 tab PO DAILY 12/15/23 [History] oxyCODONE-APAP 7.5-325MG [Percocet 7.5-325 mg] 1 each PO Q4HR PRN #18 tab 12/17/23 [Rx] Follow up Appointment(s)/Referral(s): Leo Taveras MD [STAFF PHYSICIAN] - 1 Week None,Stated [REFERRING] - 1-2 days Patient Instructions/Handouts: Narcotic Safety (GEN), Acute Abdominal Pain (DC) Activity/Diet/Wound Care/Special Instructions: Drink Plenty of water. Discharge Disposition: HOME SELF-CARE
[2023-12-17 15:50] VITALS: BP 127/79; PULSE 72; TEMP 98
== END 2023-12-17 15:59 | disposition home or self-care (01) | DRG 760 ==
LOC: EC 06:04 → 6NMEDSUR 09:30 → 1SOBS 17:56 → 6NMEDSUR 12-17 07:58 → OBSVTOIN 12-17 12:19
PROVIDERS: ADMIT Student in an Organized Health Care Education/Training Program; ATTEND Student in an Organized Health Care Education/Training Program
DX: N80.109 Endometriosis of ovary, unspecified side, unspecified depth (principal); E87.20 Acidosis, unspecified; N83.201 Unspecified ovarian cyst, right side; R00.0 Tachycardia, unspecified; N73.6 Female pelvic peritoneal adhesions (postinfective); E83.52 Hypercalcemia; R00.1 Bradycardia, unspecified; N93.9 Abnormal uterine and vaginal bleeding, unspecified; R33.8 Other retention of urine; Z82.49 Family history of ischemic heart disease and other diseases of the circulatory system; Z90.710 Acquired absence of both cervix and uterus; E87.6 Hypokalemia; D50.9 Iron deficiency anemia, unspecified
CPT/HCPCS: 36415; 51702; 74018; 74177; 76856; 80048; 80053; 81003; 81025; 82150; 83605; 83690; 84484; 85025; 85027; 85730; 93005; 93306; 93975; 93976; 96361; 96374; 96375; 96376; 99285